=== PATIENT | male | born 1955 | race Caucasian/White ===

== ENCOUNTER 2017-06-09 12:44 | Outpatient (CLI) | payer MEDICARE ==
--- NOTE | 2017-06-09 13:51 | XRAY Report ---
TWO VIEW CHEST: 06/09/2017 CLINICAL INDICATION: COPD. COMPARISON: 09/09/2016. FINDINGS: Frontal and lateral views of the chest demonstrate a normal cardiac silhouette. The lungs remain hyperinflated, compatible with COPD. No new infiltrate, effusion, or pneumothorax is present. IMPRESSION: COPD, WITHOUT EVIDENCE OF ACUTE CARDIOPULMONARY DISEASE. JOB #: [id number] EXT JOB #:[id number]
== END 2017-06-09 12:45 | disposition home or self-care (01) ==
LOC: DI 12:44
PROVIDERS: ATTEND Nurse Practitioner Family
DX: J44.9 Chronic obstructive pulmonary disease, unspecified (principal)
CPT/HCPCS: 71020

== ENCOUNTER 2018-06-06 17:17 | Outpatient (CLI) | payer MEDICARE | END 2018-06-06 17:18 | disposition critical access hospital (66) | LOC: EMS 17:17 | PROVIDERS: ATTEND Surgery | DX: R06.02 Shortness of breath (principal) | CPT/HCPCS: A0425; A0427 ==

== ENCOUNTER 2018-06-06 17:50 | Emergency (ER) | payer MEDICARE ==
[2018-06-06] MEDS ORDERED: DEXTROSE 50% ABBOJECT 25 GM/50 ML SYRINGE ONE (18:04)
[2018-06-06] MEDS ORDERED: DEXTROSE 50% ABBOJECT 25 GM/50 ML SYRINGE IVP ONE (18:07)
[2018-06-06] MEDS ORDERED: DEXTROSE 50% ABBOJECT 25 GM/50 ML SYRINGE IVP STA (18:07)
[2018-06-06] MEDS ORDERED: HYDROCORTISONE SUCCINATE 100 MG/2 ML VIAL IVP STA (18:07)
[2018-06-06] MEDS ORDERED: SODIUM CHLORIDE 0.9% 1,000 ML IV ONE (18:08)
--- NOTE | 2018-06-06 18:12 | ED Physician Documentation ---
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 He admits he stopped a few days ago. I do not know what dose of prednisone he was on. He just felt like he did not need it anymore. Today he started to feel weak and then had a syncopal episode without injury. Blood sugar was low in route and was given D50. On arrival here it is still only 43 and he is mildly somnolent. He has no specific complaints other than feeling very tired.) Review of Systems Ten Systems: 10 systems reviewed and negative Constitutional: denies: Fever, Chills Cardiac: denies: Chest pain / pressure, Palpitations Respiratory: denies: Dyspnea, Cough GI: denies: Abdominal Pain PD PAST MEDICAL HISTORY - Past Medical History Cardiovascular: Hypertension Respiratory: Other Endocrine/Autoimmune: None GI: None : None HEENT: None Psych: None Musculoskeletal: None Derm: None - Past Surgical History Past Surgical History: Yes General: Colonoscopy, EGD - Present Medications Home Medications: Ambulatory Orders Medication Instructions Recorded Confirmed Amlodipine Besylate 10 mg PO DAILY 09/01/15 09/09/16 Budesonide [Pulmicort] 120 puffs INH ONCE PRN 09/01/15 09/09/16 Potassium Chloride [Micro-K] 10 meq PO BID 09/01/15 09/09/16 Cetirizine HCl [Zyrtec] 1 tab PO DAILY 09/02/15 09/09/16 Benzonatate [Tessalon] 100 mg PO TID PRN #20 capsule 11/18/15 09/09/16 Saccharomyces Boulardii [Florastor] 500 mg PO BID #40 capsule 11/18/15 09/09/16 Levetiracetam [Keppra] 500 mg PO BID 30 Days tablet 09/10/16 - Allergies Allergies/Adverse Reactions: Allergies Allergy/AdvReac Type Severity Reaction Status Date / Time No Known Drug Allergies Allergy Verified 06/06/18 18:09 - Social History Does the pt smoke?: No Smoking Status: Never smoker Does the pt drink ETOH?: Yes Does the pt have substance abuse?: No - Immunizations Immunizations are current?: Yes - POLST Patient has POLST: No PD ED PE NORMAL - Vitals Vital signs reviewed: Yes - General General: Alert and oriented X 3, Other (Slightly somnolent but easily arousable, pretty skinny.) - HEENT HEENT: PERRL, EOMI - Neck Neck: Supple, no meningeal sign, No bony TTP - Cardiac Cardiac: Other (Mild tachycardia without murmur) - Respiratory Respiratory: Other (Squeaky wheezes throughout which per the her chronic) - Abdomen Abdomen: Soft, Non tender - Extremities Extremities: No edema, No calf tenderness / cord - Neuro Neuro: Alert and oriented X 3, Normal speech Eye Opening: Spontaneous Motor: Obeys Commands Verbal: Oriented GCS Score: 15 - Psych Psych: Normal mood Results - Vitals Vitals: Vital Signs - 24 hr 06/06/18 18:05 Temperature 36.9 C Heart Rate 117 H Respiratory 16 Rate Blood Pressure 97/78 O2 Saturation 92 Oxygen O2 Source Room air - EKG (time done) 41626 Rate: Rate (enter#) (111) Rhythm: NSR [place]: RAD Intervals: Normal [place] QRS: Normal Ischemia: Normal ST segments Computer interpretation: Agree with computer - Labs Labs: Laboratory Tests 06/06/18 06/06/18 06/06/18 18:37 18:37 18:37 WBC 8.6 RBC 3.60 L Hgb 12.8 L Hct 37.6 L MCV 104.6 H MCH 35.7 H MCHC 34.1 RDW 14.0 Plt Count 202 MPV 7.3 L Neut # (Auto) 7.9 H Lymph # (Auto) 0.4 L [place] # (Auto) 0.3 Eos # (Auto) 0.0 Baso # (Auto) 0.0 Absolute Nucleated RBC 0.01 Nucleated RBC % 0.1 Sodium 137 Potassium 3.6 Chloride 100 L Carbon Dioxide 17 L Anion Gap 20.0 H BUN 7 Creatinine 0.9 Estimated GFR (MDRD) 86 L Glucose 245 H Calcium 7.5 L Total Bilirubin 0.4 AST 79 H ALT 27 Alkaline Phosphatase 68 Troponin I < 0.04 Total Protein 5.5 L Albumin 3.1 L Globulin 2.4 Albumin/Globulin Ratio 1.3 Lipase 52 H Ethyl Alcohol 284.5 PD MEDICAL DECISION MAKING - ED course ED course: 63-year-old gentleman who had a syncopal episode today, from the history and persistent hypoglycemia this is likely related to acute steroid withdrawal and he has given D50 on arrival which is followed closely by IV hydrocortisone. His workup shows pretty normal electrolytes and a surprisingly elevated alcohol level. So this probably explains a lot of his symptoms, the passing out and hypoglycemia as well. - Sepsis Event Vital Signs: Vital Signs - 24 hr 06/06/18 18:05 Temperature 36.9 C Heart Rate 117 H Respiratory 16 Rate Blood Pressure 97/78 O2 Saturation 92 Oxygen O2 Source Room air Departure - Departure Disposition: 01 Home, Self Care Clinical Impression: Dehydration Alcohol intoxication Qualifiers: Complication of substance-induced condition: uncomplicated Qualified Code(s): F10.920 - Alcohol use, unspecified with intoxication, uncomplicated Syncope Qualifiers: Syncope type: unspecified Qualified Code(s): R55 - Syncope and collapse Condition: Good Record reviewed to determine appropriate education?: Yes Instructions: ED Fainting Unkn Cause, ED Alcohol Intoxication Comments: Refrain from alcohol. Restart your steroids at the prior dose and do not stop them suddenly without input from your straightener. Return if worse or new symptoms develop.
[2018-06-06 18:47] LABS: BASOPHILS % (AUTO) 0.5 %; HGB - HEMOGLOBIN 12.8 g/dL (14.0-18.0); LYMPHOCYTES # (AUTO) 0.4 10^3/uL (1.5-3.5); LYMPHOCYTES % (AUTO) 4.8 %; MEAN CORPUSCULAR HEMOGLOBIN 35.7 pg (27.0-31.0); MEAN CORPUSCULAR HGB CONC 34.1 g/dL (32.0-36.0); MEAN CORPUSCULAR VOLUME 104.6 fL (80.0-94.0); MEAN PLATELET VOLUME 7.3 fL (7.4-11.4); MONOCYTES # (AUTO) 0.3 10^3/uL (0.0-1.0); MONOCYTES % (AUTO) 3.3 %; NEUTROPHILS # (AUTO) 7.9 10^3/uL (1.5-6.6); NEUTROPHILS % (AUTO) 91.4 %; PLT - PLATELET COUNT 202 10^3/uL (130-450); WHITE BLOOD COUNT 8.6 x10^3/uL (4.8-10.8)
[2018-06-06 19:02] LABS: ALBUMIN 3.1 g/dL (3.2-5.5); ALBUMIN/GLOBULIN RATIO 1.3 (1.0-2.2); BILIRUBIN,TOTAL 0.4 mg/dL (0.2-1.0); CALCIUM 7.5 mg/dL (8.5-10.3); CREATININE 0.9 mg/dL (0.6-1.2); TOTAL PROTEIN 5.5 g/dL (6.7-8.2)
[2018-06-06] MEDS ORDERED: ONDANSETRON 4 MG/2 ML VIAL IVP STA (19:34)
[2018-06-06] MEDS ORDERED: METOCLOPRAMIDE 10 MG/2 ML VIAL IVP STA (21:05)
[2018-06-06 21:41] VITALS: BP 146/86
== END 2018-06-06 21:53 | disposition home or self-care (01) ==
LOC: EDBD → EDUNIT# → ED 17:50
DX: E86.0 Dehydration (principal); F10.920 Alcohol use, unspecified with intoxication, uncomplicated; I10 Essential (primary) hypertension
CPT/HCPCS: 36415; 80053; 83690; 84484; 85025; 93005; 96361; 96374; 96375; 99283; 99284; J2765; 80320

== ENCOUNTER 2018-12-03 12:37 | Emergency (ER) | payer MEDICARE ==
[2018-12-03 13:22] LABS: BASOPHILS # (AUTO) 0.1 10^3/uL (0.0-0.1); BASOPHILS % (AUTO) 0.6 %; EOSINOPHILS % (AUTO) 0.3 %; HGB - HEMOGLOBIN 13.4 g/dL (14.0-18.0); LYMPHOCYTES # (AUTO) 0.7 10^3/uL (1.5-3.5); LYMPHOCYTES % (AUTO) 7.8 %; MEAN CORPUSCULAR HEMOGLOBIN 34.8 pg (27.0-31.0); MEAN CORPUSCULAR HGB CONC 33.5 g/dL (32.0-36.0); MEAN CORPUSCULAR VOLUME 103.6 fL (80.0-94.0); MEAN PLATELET VOLUME 8.8 fL (7.4-11.4); MONOCYTES # (AUTO) 0.4 10^3/uL (0.0-1.0); MONOCYTES % (AUTO) 5.1 %; NEUTROPHILS # (AUTO) 7.4 10^3/uL (1.5-6.6); NEUTROPHILS % (AUTO) 86.2 %; PLT - PLATELET COUNT 121 10^3/uL (130-450); RED BLOOD COUNT 3.86 10^6/uL (4.70-6.10); RED CELL DISTRIBUTION WIDTH 14.2 % (12.0-15.0); WHITE BLOOD COUNT 8.6 x10^3/uL (4.8-10.8)
[2018-12-03 13:43] LABS: ALBUMIN 3.5 g/dL (3.2-5.5); ALBUMIN/GLOBULIN RATIO 1.3 (1.0-2.2); BILIRUBIN,TOTAL 7.6 mg/dL (0.2-1.0); CALCIUM 9.1 mg/dL (8.5-10.3); CREATININE 0.9 mg/dL (0.6-1.2); TOTAL PROTEIN 6.3 g/dL (6.7-8.2)
--- NOTE | 2018-12-03 14:32 | ED Physician Documentation ---
PD HPI NVD - Stated complaint Stated Complaint: VOMITING/WEAKNESS - Chief complaint Chief Complaint: Abd Pain - History obtained from History obtained from: Patient, Family - History of Present Illness Timing - onset: Yesterday Timing - duration: Days (1) Timing - details: Abrupt onset, Still present Associated symptoms: Abdominal pain, Near syncope / syncope, Loss of appetite Contributing factors: Bad food Improved by: Vomiting, BM Similar symptoms before: Diagnosis (gastroenteritis) Recently seen: Not recently seen - Additonal information Additional information: 63-year-old alcoholic male with acute diarrheal illness of 2 days duration has developed dehydration. He has had this happen to him about every 3-4 months. He does have a history of drinking wine daily and he denies symptoms of withdrawal. He states that he usually withdrawal slowly when he withdrawals. He also indicates that he has been cutting down on what he usually drinks. Review of Systems Constitutional: denies: Fever Eyes: denies: Decreased vision Ears: denies: Ear pain Nose: reports: Congestion. denies: Rhinorrhea / runny nose Throat: denies: Sore throat Cardiac: denies: Chest pain / pressure, Palpitations Respiratory: reports: Dyspnea, Cough GI: reports: Nausea, Vomiting, Diarrhea. denies: Abdominal Pain : denies: Dysuria, Frequency Skin: denies: Rash Musculoskeletal: denies: Neck pain, Back pain, Extremity pain PD PAST MEDICAL HISTORY - Past Medical History Cardiovascular: Hypertension Respiratory: Other Endocrine/Autoimmune: None GI: None : None HEENT: None Psych: None Musculoskeletal: None Derm: None - Past Surgical History Past Surgical History: Yes General: Colonoscopy, EGD - Present Medications Home Medications: Ambulatory Orders Medication Instructions Recorded Confirmed Budesonide [Pulmicort] 120 puffs INH ONCE PRN 09/01/15 09/09/16 Potassium Chloride [Micro-K] 10 meq PO BID 09/01/15 09/09/16 RX: Amlodipine Besylate 10 mg PO DAILY 09/01/15 09/09/16 Cetirizine HCl [Zyrtec] 1 tab PO DAILY 09/02/15 09/09/16 Benzonatate [Tessalon] 100 mg PO TID PRN #20 capsule 11/18/15 09/09/16 Saccharomyces Boulardii [Florastor] 500 mg PO BID #40 capsule 11/18/15 09/09/16 Levetiracetam [Keppra] 500 mg PO BID 30 Days tablet 09/10/16 Ondansetron Odt [Zofran] 4 mg TL Q6H PRN #10 tablet 12/03/18 - Allergies Allergies/Adverse Reactions: Allergies Allergy/AdvReac Type Severity Reaction Status Date / Time No Known Drug Allergies Allergy Verified 12/03/18 12:46 - Social History Does the pt smoke?: No Smoking Status: Never smoker Does the pt drink ETOH?: Yes Does the pt have substance abuse?: No - Immunizations Immunizations are current?: Yes - POLST Patient has POLST: No PD ED PE NORMAL - Vitals Vital signs reviewed: Yes (tachy) - General General: Alert and oriented X 3, Well developed/nourished, Other (jaundiced thin male ) - HEENT HEENT: Atraumatic, PERRL, EOMI, Other (dry mucous membranes ) - Neck Neck: Supple, no meningeal sign, No bony TTP - Cardiac Cardiac: No murmur, Other (tachy to 110) - Abdomen Abdomen: Soft, Non tender - Back Back: No CVA TTP, No spinal TTP - Derm Derm: Normal color, Warm and dry, No rash - Extremities Extremities: No deformity, No edema - Neuro Neuro: Alert and oriented X 3, cork painter and grader 2-12 intact, No motor deficit, No sensory deficit, Normal speech Eye Opening: Spontaneous Motor: Obeys Commands Verbal: Oriented GCS Score: 15 - Psych Psych: Normal mood, Normal affect Results - Vitals Vitals: Vital Signs - 24 hr 12/03/18 12/03/18 12/03/18 12:44 14:48 16:09 Temperature 36.0 C L Heart Rate 136 H 116 H Respiratory 14 18 18 Rate Blood Pressure 113/69 144/98 H O2 Saturation 100 99 Oxygen O2 Source Room air - Labs Labs: Laboratory Tests 12/03/18 12/03/18 12/03/18 13:18 13:18 17:01 WBC 8.6 RBC 3.86 L Hgb 13.4 L Hct 40.0 L MCV 103.6 H MCH 34.8 H MCHC 33.5 RDW 14.2 Plt Count 121 L MPV 8.8 Neut # (Auto) 7.4 H Lymph # (Auto) 0.7 L [place] # (Auto) 0.4 Eos # (Auto) 0.0 Baso # (Auto) 0.1 Absolute Nucleated RBC 0.01 Nucleated RBC % 0.1 Sodium 132 L Potassium 3.5 Chloride 86 L Carbon Dioxide 29 Anion Gap 17.0 H BUN 11 Creatinine 0.9 Estimated GFR (MDRD) 86 L Glucose 171 H Calcium 9.1 Total Bilirubin 7.6 H AST 141 H ALT 130 H Alkaline Phosphatase 133 H Total Protein 6.3 L Albumin 3.5 Globulin 2.8 Albumin/Globulin Ratio 1.3 Lipase 60 H Urine Color YELLOW Urine Clarity CLEAR Urine pH 7.0 Ur Specific [place] 1.015 Urine Protein NEGATIVE Urine Glucose (UA) NEGATIVE Urine Ketones TRACE Urine Occult Blood NEGATIVE Urine Nitrite NEGATIVE Urine Bilirubin NEGATIVE Urine Urobilinogen 0.2 (NORMAL) Ur Leukocyte Esterase NEGATIVE Ur Microscopic Review NOT INDICATED Urine Culture Comments NOT INDICATED Procedures - IVC sono (time) 1425 Bedside IVC sono: IVC measures (cm) (0.88), IVC collapsed c insp (cm) (complete), Dehydration (est 2 liter deficit.) PD MEDICAL DECISION MAKING - ED course Complexity details: reviewed old records, reviewed results, re-evaluated patient, considered differential, d/w patient, d/w family ED course: 63-year-old alcoholic male has developed acute diarrhea and vomiting he is dehydrated and here in the emergency department he is administered 2 L of fluid he is given a liter of saline and 1 L as a banana bag. Evaluation of his laboratory work indicates acute alcoholic hepatitis. The patient is confronted about his alcohol use and indicates that he has been cutting down and will stop. I did discuss the patient's alcohol use with his as well and she will be in support. Departure - Departure Disposition: 01 Home, Self Care Clinical Impression: Dehydration, Gastroenteritis, Acute alcoholic hepatitis Condition: Stable Instructions: ED Cirrhosis Liver, ED Dehydration, ED Gastroenteritis Viral, ED Alcohol Abuse Follow-Up: Stalin Nazario MD [Primary Care Provider] - Prescriptions: Ondansetron Odt [Zofran] 4 mg TL Q6H PRN #10 tablet PRN Reason: Nausea / Vomiting Discharge Date/Time: 12/03/18 17:35
[2018-12-03] MEDS ORDERED: SODIUM CHLORIDE 0.9% 1,000 ML IV ONE (14:33)
[2018-12-03] MEDS ORDERED: HYDROCORTISONE SUCCINATE 100 MG/2 ML VIAL IVP STA (14:33)
[2018-12-03] MEDS ORDERED: FOLIC ACID INJ 1 MG, THIAMINE INJ 100 MG, MAGNESIUM SULFATE 2 GM, MULTIVITAMIN 10 ML in... IV STA ×5 (15:37)
[2018-12-03 16:10] VITALS: BP 144/98
[2018-12-03 17:13] LABS: BILIRUBIN,URINE NEGATIVE (NEGATIVE); GLUCOSE, URINE (UA) NEGATIVE (NEGATIVE); KETONES,URINE (UA) TRACE mg/dL (NEGATIVE); LEUKOCYTE ESTERASE, URINE NEGATIVE (NEGATIVE); NITRITE,URINE NEGATIVE (NEGATIVE); OCCULT BLOOD,URINE NEGATIVE (NEGATIVE); PROTEIN,URINE NEGATIVE (NEGATIVE); UROBILINOGEN,URINE 0.2 (NORMAL) E.U./dL (NORMAL)
[2018-12-03 17:17] LABS: CLARITY,URINE CLEAR (CLEAR)
== END 2018-12-03 17:35 | disposition home or self-care (01) ==
LOC: ED 12:37
DX: K52.9 Noninfective gastroenteritis and colitis, unspecified (principal); E86.0 Dehydration; K70.10 Alcoholic hepatitis without ascites; F10.20 Alcohol dependence, uncomplicated; I10 Essential (primary) hypertension
CPT/HCPCS: 36415; 80053; 81003; 83690; 85025; 96361; 96365; 96375; 99283; 99284; J3411; 81001; 87086

== ENCOUNTER 2018-12-04 17:58 | Outpatient (CLI) | payer MEDICARE | END 2018-12-04 17:59 | disposition short-term general hospital (02) | LOC: EMS 17:58 | PROVIDERS: ATTEND Surgery | DX: R56.9 Unspecified convulsions (principal); S01.552A Open bite of oral cavity, initial encounter; X58.XXXA Exposure to other specified factors, initial encounter | CPT/HCPCS: A0425; A0427 ==

== ENCOUNTER 2019-05-17 14:27 | Outpatient (CLI) | payer MEDICARE ==
--- NOTE | 2019-05-18 12:20 | Ultrasound Report ---
Reason: ABNORMAL RESULTS OF LIVER FUNCTION STUDIES Procedure Date: 05/17/2019 Accession Number: [id number] / [id number] Procedure: US - Abdomen Complete CPT Code: FULL RESULT: EXAM: ABDOMEN ULTRASOUND EXAM DATE: 05/17/2019 04:08 PM. CLINICAL HISTORY: Abnormal results of liver function studies. COMPARISON: ABDOMEN/PELVIS W/ 11/18/2015 12:46 PM. TECHNIQUE: Real-time scanning was performed with static images obtained. FINDINGS: Liver: Liver parenchyma is heterogeneous and mildly hyperechoic. No discrete liver masses or intrahepatic bile duct dilation. However, evaluation for masses is limited secondary to the echogenicity. Right liver measures 15.1 cm. Main portal vein flow: Hepatopetal. Gallbladder: Normal. No stones, wall thickening, or sonographic Henderson's sign. Biliary System: Common bile duct measures 3 mm. No intrahepatic or extrahepatic ductal dilatation. Pancreas: Limited visualization of the grossly unremarkable pancreas. Given the limitations, no focal abnormality. Kidneys: Right: 10.1 cm longitudinally. Normal. No contour-deforming mass, stones, or hydronephrosis. Left: 9.7 cm longitudinally. 0.6 cm mid left renal echogenic shadowing focus compatible with a stone. No left renal mass or hydronephrosis. Spleen: Length measures 7.5 cm. Normal in size and echotexture. Not well seen. Aorta and Inferior Vena Cava: Atheromatous plaques noted. No abdominal aortic aneurysm. Normal IVC. Other: None. IMPRESSION: 1. Heterogeneous liver. Findings are compatible with diffuse parenchymal process. No mass or intrahepatic bile duct dilation. No definite cirrhosis. 2. Normal gallbladder and common bile duct. Limited visualization of the grossly unremarkable pancreas. 3. No renal mass or hydronephrosis. Nonobstructing 0.6 cm mid left renal stone. RADIA
== END 2019-05-17 14:28 | disposition home or self-care (01) ==
LOC: DI 14:27
PROVIDERS: ATTEND Nurse Practitioner Family
DX: R94.5 Abnormal results of liver function studies (principal)
CPT/HCPCS: 76700

== ENCOUNTER 2019-11-04 14:46 | Emergency (ER) | payer MEDICARE ==
--- NOTE | 2019-11-04 14:58 | ED Physician Documentation ---
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 He presents with about 2 days of hard stools and rectal pain and rectal bleeding since yesterday. Does feel weak and dizzy. No abdominal pain.) Review of Systems Ten Systems: 10 systems reviewed and negative Constitutional: reports: Fatigue. denies: Fever, Chills Respiratory: denies: Dyspnea (Today is "a good day" for his lungs), Cough GI: reports: Constipation, Bloody / black stool. denies: Abdominal Pain, Nausea, Vomiting PD PAST MEDICAL HISTORY - Past Medical History Cardiovascular: Hypertension Respiratory: Other Endocrine/Autoimmune: None GI: None : None HEENT: None Psych: None Musculoskeletal: None Derm: None - Past Surgical History Past Surgical History: Yes General: Colonoscopy, EGD - Present Medications Home Medications: Ambulatory Orders Medication Instructions Recorded Confirmed Amlodipine Besylate 10 mg PO DAILY 09/01/15 09/09/16 Budesonide [Pulmicort] 120 puffs INH ONCE PRN 09/01/15 09/09/16 Potassium Chloride [Micro-K] 10 meq PO BID 09/01/15 09/09/16 Cetirizine HCl [Zyrtec] 1 tab PO DAILY 09/02/15 09/09/16 Benzonatate [Tessalon] 100 mg PO TID PRN #20 capsule 11/18/15 09/09/16 Saccharomyces Boulardii [Florastor] 500 mg PO BID #40 capsule 11/18/15 09/09/16 Levetiracetam [Keppra] 500 mg PO BID 30 Days tablet 09/10/16 Ondansetron Odt [Zofran] 4 mg TL Q6H PRN #10 tablet 12/03/18 Lidocaine [Recticare] 1 appful TP TID #2 cream..g. 11/04/19 - Allergies Allergies/Adverse Reactions: Allergies Allergy/AdvReac Type Severity Reaction Status Date / Time No Known Drug Allergies Allergy Verified 11/04/19 15:01 - Social History Does the pt smoke?: No Smoking Status: Never smoker Does the pt drink ETOH?: Yes Does the pt have substance abuse?: No - Immunizations Immunizations are current?: Yes - POLST Patient has POLST: No PD ED PE NORMAL - Vitals Vital signs reviewed: Yes (Tachycardic) - General General: Alert and oriented X 3, Other (He is quite thin) - HEENT HEENT: PERRL, EOMI - Neck Neck: Supple, no meningeal sign, No bony TTP - Cardiac Cardiac: Other (Cardiac but regular without murmur) - Respiratory Respiratory: Other (Mild wheezes and crackles throughout without focal findings or distress) - Abdomen Abdomen: Soft, Non tender - Rectal Rectal: Other (Does have a rectal fissure that is tender, a small amount of bright red blood per rectum. No masses.) - Back Back: No CVA TTP, No spinal TTP - Derm Derm: Normal color, Warm and dry, No rash - Extremities Extremities: No edema, No calf tenderness / cord - Neuro Neuro: Alert and oriented X 3, Normal speech Results - Vitals Vitals: Vital Signs - 24 hr 11/04/19 11/04/19 14:53 15:28 Temperature 36.0 C L Heart Rate 131 H 87 Respiratory 22 Rate Blood Pressure 125/100 H O2 Saturation 98 Oxygen O2 Source Room air - EKG (time done) 1512 Rate: Rate (enter#) (93) Rhythm: NSR, LAE, JOSE MARIA [place]: RAD Intervals: Normal ID QRS: Normal Ischemia: Non specific changes. No: ST elevation c/w ischemia, ST depression - Labs Labs: Laboratory Tests 11/04/19 11/04/19 11/04/19 15:05 15:05 15:05 WBC 9.1 RBC 4.24 L Hgb 14.2 Hct 40.8 L MCV 96.2 H MCH 33.5 H MCHC 34.8 RDW 14.5 Plt Count 193 MPV 9.3 Neut # (Auto) 7.7 H Lymph # (Auto) 0.7 L [place] # (Auto) 0.6 Eos # (Auto) 0.0 Baso # (Auto) 0.0 Absolute Nucleated RBC 0.00 Nucleated RBC % 0.0 PT 11.3 INR 1.0 Sodium 134 L Potassium 3.7 Chloride 87 L Carbon Dioxide 26 Anion Gap 21.0 H BUN 14 Creatinine 0.8 Estimated GFR (MDRD) 98 Glucose 107 H Calcium 9.2 Total Bilirubin 2.6 H AST 128 H ALT 111 H Alkaline Phosphatase 72 Total Protein 7.1 Albumin 4.2 Globulin 2.9 Albumin/Globulin Ratio 1.4 Lipase 69 H Ethyl Alcohol 149.8 PD MEDICAL DECISION MAKING - ED course ED course: 64-year-old gentleman with alcoholism and alcoholic liver disease presents with a rectal bleed found due to a rectal fissure. His H&H is reassuring, his coags are normal and his platelets are normal. He does have some evidence of alcohol intoxication and alcoholic liver disease. He did not drive today, his did. He declined to talk to the social media job titles about alcohol but does voice understanding and plans to quit drinking. Departure - Departure Disposition: Home, Self Care Clinical Impression: Rectal fissure, Hematochezia, Alcoholic liver disease Alcohol intoxication Qualifiers: Complication of substance-induced condition: uncomplicated Qualified Code(s): F10.920 - Alcohol use, unspecified with intoxication, uncomplicated Condition: Good Record reviewed to determine appropriate education?: Yes Instructions: ED Alcohol Intoxication, ED Fissure Anal Ch Prescriptions: Lidocaine [Recticare] 1 appful TP TID #2 cream..g. Comments: As discussed, it is imperative to quit drinking alcohol. Your liver is suffering as is your health. Return for new or worsening symptoms. Follow-up with your doctor within the week.
[2019-11-04 15:01] VITALS: BP 125/100
[2019-11-04] MEDS ORDERED: SODIUM CHLORIDE 0.9% 1,000 ML IV ONE (15:10)
[2019-11-04 15:13] LABS: BASOPHILS % (AUTO) 0.1 %; HGB - HEMOGLOBIN 14.2 g/dL (14.0-18.0); LYMPHOCYTES # (AUTO) 0.7 10^3/uL (1.5-3.5); LYMPHOCYTES % (AUTO) 7.8 %; MEAN CORPUSCULAR HEMOGLOBIN 33.5 pg (27.0-31.0); MEAN CORPUSCULAR HGB CONC 34.8 g/dL (32.0-36.0); MEAN CORPUSCULAR VOLUME 96.2 fL (80.0-94.0); MEAN PLATELET VOLUME 9.3 fL (7.4-11.4); MONOCYTES # (AUTO) 0.6 10^3/uL (0.0-1.0); NEUTROPHILS # (AUTO) 7.7 10^3/uL (1.5-6.6); NEUTROPHILS % (AUTO) 84.7 %; PLT - PLATELET COUNT 193 10^3/uL (130-450); RED BLOOD COUNT 4.24 10^6/uL (4.70-6.10); RED CELL DISTRIBUTION WIDTH 14.5 % (12.0-15.0); WHITE BLOOD COUNT 9.1 x10^3/uL (4.8-10.8)
[2019-11-04 15:17] LABS: PT - PROTHROMBIN TIME 11.3 secs (9.9-12.6)
[2019-11-04 15:25] LABS: ALBUMIN 4.2 g/dL (3.2-5.5); ALBUMIN/GLOBULIN RATIO 1.4 (1.0-2.2); BILIRUBIN,TOTAL 2.6 mg/dL (0.2-1.0); CALCIUM 9.2 mg/dL (8.5-10.3); CREATININE 0.8 mg/dL (0.6-1.2); TOTAL PROTEIN 7.1 g/dL (6.7-8.2)
== END 2019-11-04 15:50 | disposition home or self-care (01) ==
LOC: ED 14:46
DX: K60.2 Anal fissure, unspecified (principal); K92.1 Melena; F10.229 Alcohol dependence with intoxication, unspecified; K70.0 Alcoholic fatty liver; I10 Essential (primary) hypertension
CPT/HCPCS: 36415; 80053; 80320; 83690; 85025; 85610; 86850; 86900; 86901; 93005; 99284

== ENCOUNTER 2021-02-15 | Outpatient (CLI) | payer MEDICARE | END 2021-02-15 17:11 | disposition critical access hospital (66) | CPT/HCPCS: A0425; A0427 ==

== ENCOUNTER 2021-02-15 17:40 | Observation (INO) | payer MEDICARE ==
[2021-02-15] MEDS ORDERED: SODIUM CHLORIDE 0.9% 1,000 ML IV STA (17:49)
[2021-02-15] MEDS ORDERED: THIAMINE INJ 100 MG in SODIUM CHLORIDE 0.9% 50 ML IV STA (17:49)
--- NOTE | 2021-02-15 17:49 | ED Physician Documentation ---
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 Has not seen his automatic blocker [facility] in many years. He was in his usual state of health this morning when out to breakfast with which he had a couple of screwdrivers and then had a trip and fall getting in the car on the curve directly onto the left hip. He has severe pain left hip, although declines further pain medication on initial evaluation after a total of 150 mcg of fentanyl on the way here. He states his breathing is not any worse than normal. Denies head or neck injury. He is unable to walk or bear weight. Review of Systems Ten Systems: 10 systems reviewed and negative Constitutional: reports: Reviewed and negative Ears: reports: Reviewed and negative Nose: reports: Reviewed and negative Throat: reports: Reviewed and negative PD PAST MEDICAL HISTORY - Past Medical History Cardiovascular: Hypertension Respiratory: Other Endocrine/Autoimmune: None GI: None : None HEENT: None Psych: None Musculoskeletal: None Derm: None - Past Surgical History Past Surgical History: Yes General: Colonoscopy, EGD - Present Medications Home Medications: Ambulatory Orders Medication Instructions Recorded Confirmed Amlodipine Besylate 10 mg PO DAILY 09/01/15 09/09/16 Budesonide [Pulmicort] 120 puffs INH ONCE PRN 09/01/15 09/09/16 Potassium Chloride [Micro-K] 10 meq PO BID 09/01/15 09/09/16 Cetirizine HCl [Zyrtec] 1 tab PO DAILY 09/02/15 09/09/16 Benzonatate [Tessalon] 100 mg PO TID PRN #20 capsule 11/18/15 09/09/16 Saccharomyces Boulardii [Florastor] 500 mg PO BID #40 capsule 11/18/15 09/09/16 Levetiracetam [Keppra] 500 mg PO BID 30 Days tablet 09/10/16 Ondansetron Odt [Zofran] 4 mg TL Q6H PRN #10 tablet 12/03/18 Lidocaine [Recticare] 1 appful TP TID #2 cream..g. 11/04/19 - Allergies Allergies/Adverse Reactions: Allergies Allergy/AdvReac Type Severity Reaction Status Date / Time No Known Drug Allergies Allergy Verified 02/15/21 18:04 - Social History Does the pt smoke?: No Smoking Status: Never smoker Does the pt drink ETOH?: Yes Does the pt have substance abuse?: No - Immunizations Immunizations are current?: Yes - POLST Patient has POLST: No PD ED PE NORMAL - Vitals Vital signs reviewed: Yes (Hypoxemic) - General General: Alert and oriented X 3, Other (He is quite thin, does not appear acutely ill though but winces with pain with any motion of the left hip.) - HEENT HEENT: PERRL, EOMI - Neck Neck: Supple, no meningeal sign, No bony TTP - Cardiac Cardiac: RRR, No murmur - Respiratory Respiratory: No respiratory distress, Other (Diminished breath sounds throu ghout) - Abdomen Abdomen: Soft, Non tender - Back Back: No CVA TTP, No spinal TTP - Derm Derm: Normal color, Warm and dry - Extremities Extremities: Other (Left hip is held flexed and slightly shortened with profound pain with any motion.) - Neuro Neuro: Alert and oriented X 3, Normal speech Results - Vitals Vitals: Vital Signs - 24 hr 02/15/21 02/15/21 17:44 18:12 Temperature 36.8 C Heart Rate 116 H 114 H Respiratory 18 22 Rate Blood Pressure 132/95 H 127/86 H O2 Saturation 85 L 97 Oxygen O2 Source Nasal cannula Oxygen Flow Rate 2 - EKG (time done) 1757 Rate: Rate (enter#) (115) Rhythm: Sinus tachycardia, JOSE MARIA [place]: RAD Intervals: Normal [place] QRS: Normal Ischemia: Normal ST segments - Labs Labs: Laboratory Tests 02/15/21 02/15/21 02/15/21 18:21 18:21 18:21 WBC 9.6 RBC 3.68 L Hgb 12.1 L Hct 36.8 L MCV 100.0 H MCH 32.9 H MCHC 32.9 RDW 14.9 Plt Count 204 MPV 8.5 Neut # (Auto) 7.6 H Lymph # (Auto) 1.0 L Rooks # (Auto) 1.0 Eos # (Auto) 0.0 Baso # (Auto) 0.0 Absolute Nucleated RBC 0.00 Nucleated RBC % 0.0 PT 11.8 INR 1.1 Sodium 134 L Potassium 3.3 L Chloride 93 L Carbon Dioxide 31 Anion Gap 10.0 BUN 10 Creatinine 0.7 Estimated GFR (MDRD) 114 Glucose 102 H Calcium 8.1 L Magnesium 1.6 L Total Bilirubin 0.5 AST 57 H ALT 41 Alkaline Phosphatase 49 Total Protein 6.3 L Albumin 3.7 Globulin 2.6 Albumin/Globulin Ratio 1.4 Nasal Adenovirus (PCR) Nasal B. parapertussis DNA (PCR) Nasal Coronavir 229E PCR Nasal Coronavir HKU1 PCR Nasal Coronavir NL63 PCR Nasal Coronavir OC43 PCR Nasal Enterovir/Rhinovir PCR Nasal Influenza B PCR Nasal Influenza A PCR Nasal Parainfluen 1 PCR Nasal Parainfluen 2 PCR Nasal Parainfluen 3 PCR Nasal Parainfluen 4 PCR Nasal RSV (PCR) Nasal B.pertussis DNA PCR Nasal C.pneumoniae (PCR) Fan Human Metapneumo PCR Nasal M.pneumoniae (PCR) Nasal SARS-CoV-2 (PCR) Ethyl Alcohol 154.3 02/15/21 18:39 WBC RBC Hgb Hct MCV MCH MCHC RDW Plt Count MPV Neut # (Auto) Lymph # (Auto) Rooks # (Auto) Eos # (Auto) Baso # (Auto) Absolute Nucleated RBC Nucleated RBC % PT INR Sodium Potassium Chloride Carbon Dioxide Anion Gap BUN Creatinine Estimated GFR (MDRD) Glucose Calcium Magnesium Total Bilirubin AST ALT Alkaline Phosphatase Total Protein Albumin Globulin Albumin/Globulin Ratio Nasal Adenovirus (PCR) NOT DETECTED Nasal B. parapertussis DNA (PCR) NOT DETECTED Nasal Coronavir 229E PCR NOT DETECTED Nasal Coronavir HKU1 PCR NOT DETECTED Nasal Coronavir NL63 PCR NOT DETECTED Nasal Coronavir OC43 PCR NOT DETECTED Nasal Enterovir/Rhinovir PCR NOT DETECTED Nasal Influenza B PCR NOT DETECTED Nasal Influenza A PCR NOT DETECTED Nasal Parainfluen 1 PCR NOT DETECTED Nasal Parainfluen 2 PCR NOT DETECTED Nasal Parainfluen 3 PCR NOT DETECTED Nasal Parainfluen 4 PCR NOT DETECTED Nasal RSV (PCR) NOT DETECTED Nasal B.pertussis DNA PCR NOT DETECTED Nasal C.pneumoniae (PCR) NOT DETECTED Fan Human Metapneumo PCR NOT DETECTED Nasal M.pneumoniae (PCR) NOT DETECTED Nasal SARS-CoV-2 (PCR) NOT DETECTED Ethyl Alcohol PD MEDICAL DECISION MAKING - ED course ED course: 65-year-old gentleman with constrictive bronchiolitis and alcoholism presents after a fall directly onto the left hip. Initial x-ray was negative and this was followed by a CT showing a nondisplaced comminuted fracture of the anterior column of the left acetabulum into the roof of less abscess acetabulum. This was discussed by phone with our on-call orthopedist, Dr. Antonio who felt this was a nonoperative issue and TT weightbearing with a walker with advised. That said he was noted to have an oxygen requirement he arrived., He has no acute pulmonary complaints and my suspicion is he probably is hypoxic all day, every day.Patient was unable to pass a road test and was still hypoxemic and required the supplemental oxygen. As such he was presented to Dr. Lucero for observation at 8:12 PM. Departure - Departure Disposition: ED Place in Observation Clinical Impression: Hypoxemia, Bronchiolitis Left acetabular fracture Qualifiers: Encounter type: initial encounter Sublocation of acetabulum: unspecified portion of acetabulum Fracture type: closed Fracture alignment: nondisplaced Qualified Code(s): S32.402A - Unspecified fracture of left acetabulum, initial encounter for closed fracture Alcohol intoxication Qualifiers: Complication of substance-induced condition: uncomplicated Qualified Code(s): F10.920 - Alcohol use, unspecified with intoxication, uncomplicated Condition: Serious
[2021-02-15] MEDS ORDERED: THIAMINE 100 MG/1 ML 2 ML MDV ONE (18:22)
--- NOTE | 2021-02-15 18:22 | XRAY Report ---
PROCEDURE: Chest 1 View X-Ray INDICATIONS: hypoxemia TECHNIQUE: One view of the chest was acquired. COMPARISON: 06/09/2017 FINDINGS: Surgical changes and devices: None. Lungs and pleura: No pleural effusions or pneumothorax. Lungs are clear. Mediastinum: Mediastinal contours appear normal. Heart size is normal. Bones and chest wall: No suspicious bony lesions. Overlying soft tissues appear unremarkable. IMPRESSION: No evidence acute pulmonary process. Reviewed by: Gordon Mims MD on 02/15/2021 6:21 PM PDT Approved by: Gordon Mims MD on 02/15/2021 6:21 PM PDT Station ID: [id number]
[2021-02-15 18:25] LABS: BASOPHILS % (AUTO) 0.2 %; EOSINOPHILS % (AUTO) 0.1 %; HCT - HEMATOCRIT 36.8 % (42.0-52.0); HGB - HEMOGLOBIN 12.1 g/dL (14.0-18.0); LYMPHOCYTES % (AUTO) 9.9 %; MEAN CORPUSCULAR HEMOGLOBIN 32.9 pg (27.0-31.0); MEAN CORPUSCULAR HGB CONC 32.9 g/dL (32.0-36.0); MEAN PLATELET VOLUME 8.5 fL (7.4-11.4); MONOCYTES % (AUTO) 10.4 %; NEUTROPHILS # (AUTO) 7.6 10^3/uL (1.5-6.6); NEUTROPHILS % (AUTO) 78.9 %; PLT - PLATELET COUNT 204 10^3/uL (130-450); RED BLOOD COUNT 3.68 10^6/uL (4.70-6.10); RED CELL DISTRIBUTION WIDTH 14.9 % (12.0-15.0); WHITE BLOOD COUNT 9.6 x10^3/uL (4.8-10.8)
[2021-02-15] MEDS ORDERED: HYDROmorphone 1 MG/ML CARPUJECT IVP STA ×2 (18:25→19:48)
--- NOTE | 2021-02-15 18:25 | XRAY Report ---
PROCEDURE: Hip w/Pelvis 2-3V LT INDICATIONS: L hip injury TECHNIQUE: AP pelvis with lateral view(s) of the left mild left hip degenerative change. hip(s). COMPARISON: None. FINDINGS: Bones: No fractures or dislocations. Pelvic ring appears intact. No suspicious bony lesions. Soft tissues: The visualized bowel gas pattern is normal. No suspicious soft tissue calcifications. Extensive internal iliac calcification suggests possible diabetes. IMPRESSION: Mild left hip degenerative change. No evidence acute bony abnormality of the pelvis and left hip. Reviewed by: Gordon Mims MD on 02/15/2021 6:23 PM PDT Approved by: Gordon Mims MD on 02/15/2021 6:23 PM PDT Station ID: [id number]
[2021-02-15 18:30] LABS: INR 1.1 (0.8-1.2); PT - PROTHROMBIN TIME 11.8 secs (9.9-12.6)
[2021-02-15 18:38] LABS: ALBUMIN 3.7 g/dL (3.2-5.5); ALBUMIN/GLOBULIN RATIO 1.4 (1.0-2.2); BILIRUBIN,TOTAL 0.5 mg/dL (0.2-1.0); CALCIUM 8.1 mg/dL (8.5-10.3); CREATININE 0.7 mg/dL (0.6-1.2); ETOH - ETHANOL 154.3 mg/dL; MAGNESIUM 1.6 mg/dL (1.7-2.8); POTASSIUM 3.3 mmol/L (3.5-5.0); TOTAL PROTEIN 6.3 g/dL (6.7-8.2)
[2021-02-15 19:37] LABS: B. PARAPERTUSSIS- RESP PCR PAN NOT DETECTED; B. PERTUSSIS- RESP PCR PANEL NOT DETECTED; C. PNEUMONIAE- RESP PCR PANEL NOT DETECTED; CORONAVIRUS 229E-RESP PCR NOT DETECTED; CORONAVIRUS HKU1-RESP PCR NOT DETECTED; CORONAVIRUS NL63-RESP PCR NOT DETECTED; CORONAVIRUS OC43-RESP PCR NOT DETECTED; HUMAN METAPNEUMOVIRUS NOT DETECTED; INFLUENZA A- RESP PCR PANEL NOT DETECTED; INFLUENZA B - RESP PCR PANEL NOT DETECTED; M. PNEUMONIAE- RESP PCR PANEL NOT DETECTED; PARAINFLUENZA VIRUS 1 NOT DETECTED; PARAINFLUENZA VIRUS 2 NOT DETECTED; PARAINFLUENZA VIRUS 3 NOT DETECTED; PARAINFLUENZA VIRUS 4 NOT DETECTED; RHINOVIRUS/ENTEROVIRUS NOT DETECTED; RSV- RESP PCR PANEL NOT DETECTED; SARS-CoV-2 -RESP PCR PANEL NOT DETECTED
--- NOTE | 2021-02-15 19:40 | CT Report ---
PROCEDURE: LOWER EXTREMITY WO - LT INDICATIONS: Hip injury TECHNIQUE: Noncontrast 3 mm axial sections acquired of the pelvis and left hip, with coronal and sagittal reform ats. COMPARISON: None. FINDINGS: Image quality: Excellent. Bones: There is a comminuted fracture of the anterior column of the left acetabulum. There is a nond isplaced fracture extending into the roof of the acetabulum as well. No fractures of the femoral head and neck and trochanteric region. No other pelvic fractures noted. Soft tissues: Unremarkable IMPRESSION: 1. Nondisplaced comminuted fracture of the anterior column of the left acetabulum with fracture exten ding into the roof of the left acetabulum. Reviewed by: Gordon Mims MD on 02/15/2021 7:39 PM PDT Approved by: Gordon Mims MD on 02/15/2021 7:39 PM PDT Station ID: [id number]
[2021-02-15] MEDS ORDERED: KETOROLAC 30 MG/ML VIAL IVP STA (19:48)
[2021-02-15] MEDS ORDERED: ONDANSETRON 4 MG/2 ML VIAL IVP PRN (20:14)
[2021-02-15] MEDS ORDERED: SODIUM CHLORIDE FLUSH 0.9% 10 ML SYRINGE IVP PRN (20:14)
[2021-02-15] MEDS ORDERED: ACETAMINOPHEN 325 MG TABLET PO PRN (20:14)
--- NOTE | 2021-02-15 20:21 | HISTORY & PHYSICAL EXAMINATION ---
Chief Complaint - Chief Complaint Chief Complaint: s/p mechanical fall History of Present Illness - Admitted From Admitted From:: [facility] ED - History Obtained From Records Reviewed: yes History obtained from: patient - History of Present Illness HPI Comment/Other: Patient is a 65-year-old male with medical history significant for Alcohol ab use, hypertension, GERD, previous history of seizures and constrictive bronchiolitis for which he is on chronic prednisone as needed. He has not seen his travel registered nurse pacu in a very long time. He presented to the ED today with left hip pain and being unable to stand or walk. He went out for breakfast today and on his way back to his truck he tripped on the curb and fell on his left side. He did not hit his head or pass out. He was unable to stand on his own and required some help from his to get into the truck. His drove them back home. A couple of hours later he tried to stand and was unable to bear weight on his left leg. As a result EMS was called and he was brought to the ED for evaluation. Work-up in the ED included a CT of the left lower extremity which showed a non-displaced comminuted fracture of the anterior column of the left acetabulum, with the fracture extending into the roof of the left acetabulum. This was discussed with Dr. Jeffrey Antonio. It was deemed to be inoperable. Also in the ED he was noted to have an oxygen saturation of 85% on room air. The patient denied feeling dyspneic. His blood alcohol at time of admission was 154.3 As a result of his hypoxia, left hip pain and being unable to bear weight he was admitted for supplemental oxygen and further pain management. At bedside he denies any pain as long as he is not moving. He denies chest pain, dyspnea, abdominal pain, nausea, vomiting, fever or chills. History - Past Medical History Cardiovascular: reports: Hypertension Respiratory: reports: Other (Constrictive bronchiolitis) Endocrine/Autoimmune: reports: None GI: reports: None : reports: None HEENT: reports: None Psych: reports: None Musculoskeletal: reports: None Derm: reports: None MRSA Hx?: No Other Past Medical History: Alcohol abuse - Past Surgical History General: reports: Colonoscopy, EGD Other past surgical history: Patient denies any past surgical history - Family & Social History Family History Comment/Other: His brother had liver failure. Etiology unknown. He underwent a liver transplant. Social History Notes: He lives at home with his . He is normally independen t of activities of daily living. He denies tobacco use. He reports drinking 2 beers daily and 2 glasses of wine in the evening. He also uses some form of marijuana - POLST Patient has POLST: No POLST Status: Full Code Meds/Allgy - Home Medications Home Medications: Ambulatory Orders Medication Instructions Recorded Confirmed Amlodipine Besylate 10 mg PO DAILY 09/01/15 09/09/16 Budesonide [Pulmicort] 120 puffs INH ONCE PRN 09/01/15 09/09/16 Potassium Chloride [Micro-K] 10 meq PO BID 09/01/15 09/09/16 Cetirizine HCl [Zyrtec] 1 tab PO DAILY 09/02/15 09/09/16 Benzonatate [Tessalon] 100 mg PO TID PRN #20 capsule 11/18/15 09/09/16 Saccharomyces Boulardii [Florastor] 500 mg PO BID #40 capsule 11/18/15 09/09/16 Levetiracetam [Keppra] 500 mg PO BID 30 Days tablet 09/10/16 Ondansetron Odt [Zofran] 4 mg TL Q6H PRN #10 tablet 12/03/18 Lidocaine [Recticare] 1 appful TP TID #2 cream..g. 11/04/19 - Allergies Allergies/Adverse Reactions: Allergies Allergy/AdvReac Type Severity Reaction Status Date / Time No Known Drug Allergies Allergy Verified 02/15/21 18:04 Review of Systems - Constitutional Constitutional: reports: Other (Frail). denies: Fatigue, Fever, Chills - Eyes Eyes: denies: Pain, Vision loss - Ears, Nose & Throat Ears, Nose & Throat: denies: Sore throat - Cardiovascular Cariovascular: denies: Chest pain, Edema, Lightheadedness, Syncope - Respiratory Respiratory: denies: Cough, Sputum production, Wheezing, SOB at rest, SOB with exertion - Gastrointestinal Gastrointestinal: denies: Abdominal pain, Abdominal distention, Nausea, Vomiting - Genitourinary Genitourinary: denies: Dysuria, Frequency, Hematuria - Musculoskeletal Musculoskeletal: reports: Joint pain (left hip joint) - Integumentary Integumentary: denies: Rash, Pruritis, Lesions - Neurological Neurological: denies: General weakness, Focal weakness, Headache - Psychiatric Psychiatric: denies: Depression, Anxiety - Endocrine Endocrine: denies: Polyuria, Polydypsia - Hematologic/Lymphatic Hematologic/Lymphatic: denies: Anemia, Bruising, Petechiae Prior Level of Functionality: Patient is normally independent of activities of daily living Exam - Vital Signs Vital Signs: Vital Signs x48h Temp Pulse Resp BP Pulse Ox 02/15/21 18:12 114 H 22 127/86 H 97 02/15/21 17:44 36.8 C 116 H 18 132/95 H 85 L - Physical Exam General Appearance: positive: Alert, Mild distress, Moderate distress, Other (Frail/malnourished) Eyes Bilateral: positive: PERRL, EOMI ENT: positive: No signs of dehydration Neck: positive: No JVD, Trachea midline Respiratory: positive: Chest non-tender, No respiratory distress. negative: Wheezes, Rales, Rhonchi Cardiovascular: positive: No murmur, Tachycardia Abdomen: positive: Non-tender, No organomegaly, Nml bowel sounds, No distention. negative: Guarding, Rebound Back: positive: Nml inspection Skin: positive: Color nml, No rash, Warm, Dry Extremities: positive: Nml appearance, No pedal edema Neurologic/Psychiatric: positive: Oriented x3, CN's nml (2-12), Mood/affect nml Conclusion/Plan - Problem List (1) Left acetabular fracture Conclusion/Plan: Dr. Jeffrey Antonio with orthopedic surgery was contacted by Dr. Mccullough in the ED. The fracture is deemed to be in operable. However the patient is unable to bear weight/ambulate. Pain management as needed. PT/OT to evaluate the patient and give recommendations. The patient might possibly need temporary placement. Qualifiers: Encounter type: initial encounter Sublocation of acetabulum: unspecified portion of acetabulum Fracture type: closed Fracture alignment: nondisplaced Qualified Code(s): S32.402A - Unspecified fracture of left acetabulum, initial encounter for closed fracture (2) Hypoxemia Conclusion/Plan: Patient has history of constrictive bronchiolitis at baseline. Oxygen saturation was 85% on room air. Patient required 2 L of supplemental oxygen via nasal cannula to maintain his oxygen in the 90s. We will continue budesonide. DuoNeb as needed. The patient has not seen his travel registered nurse pacu at the [facility] in several years. He is on chronic prednisone as needed which he last took today. He has been advised of the effects of long-term steroid use to his bones, blood glucose level and mood. He expresses understanding. (3) Bronchiolitis Conclusion/Plan: Chronic. DuoNeb ordered as needed. Continue budesonide. Patient is on supplemental oxygen. The patient has not seen his travel registered nurse pacu at the [facility] in se veral years. He is on chronic prednisone as needed which he last took today. He has been advised of the effects of long-term steroid use to his bones, blood glucose level and mood. He expresses understanding. (4) Alcohol intoxication Conclusion/Plan: Blood alcohol level was 154 at admission. Will order CIWA protocol. Qualifiers: Complication of substance-induced condition: uncomplicated Qualified Code(s): F10.920 - Alcohol use, unspecified with intoxication, uncomplicated (5) Hypertension Conclusion/Plan: On amlodipine 10 mg p.o. daily. (6) History of seizures Conclusion/Plan: Patient reports that he no longer takes Keppra. - Lab Results Fish Bones: 02/15/21 18:21 02/15/21 18:21 Core Measures - Anticipated LOS I expect patient to be DC'd or transferred within 96 hours.: Yes - DVT/VTE - Prophylaxis VTE/DVT Device ordered at admit?: Yes VTE/DVT Prophylaxis med ordered at admit?: Yes
[2021-02-15] MEDS ORDERED: levETIRAcetam 250 MG TABLET PO SCH (21:00)
[2021-02-15] MEDS: FAMOTIDINE 20 MG TABLET PO SCH (22:28)
[2021-02-15] MEDS: chlordiazePOXIDE 25 MG CAPSULE PO SCH (22:28)
[2021-02-16] MEDS: HYDROmorphone 0.5 MG/0.5 ML SYRINGE IVP PRN ×3 (00:20→12:59)
[2021-02-16] MEDS: KETOROLAC 30 MG/ML VIAL IVP PRN ×2 (00:44→08:38)
[2021-02-16] MEDS ORDERED: KETOROLAC 30 MG/ML VIAL IVP PRN (02:00)
[2021-02-16] MEDS: HYDROcod/ACETAM 5/325 MG TABLET PO PRN ×3 (02:02→17:53)
[2021-02-16] MEDS: SODIUM CHLORIDE FLUSH 0.9% 10 ML SYRINGE IVP SCH ×3 (02:04→15:58)
[2021-02-16 05:41] LABS: BASOPHILS % (AUTO) 0.2 %; EOSINOPHILS # (AUTO) 0.2 10^3/uL (0.0-0.7); EOSINOPHILS % (AUTO) 2.1 %; HGB - HEMOGLOBIN 12.2 g/dL (14.0-18.0); LYMPHOCYTES # (AUTO) 0.4 10^3/uL (1.5-3.5); LYMPHOCYTES % (AUTO) 4.1 %; MEAN CORPUSCULAR HEMOGLOBIN 33.5 pg (27.0-31.0); MEAN CORPUSCULAR HGB CONC 33.9 g/dL (32.0-36.0); MEAN CORPUSCULAR VOLUME 98.9 fL (80.0-94.0); MEAN PLATELET VOLUME 9.1 fL (7.4-11.4); MONOCYTES # (AUTO) 0.9 10^3/uL (0.0-1.0); MONOCYTES % (AUTO) 9.3 %; NEUTROPHILS # (AUTO) 8.3 10^3/uL (1.5-6.6); PLT - PLATELET COUNT 200 10^3/uL (130-450); RED BLOOD COUNT 3.64 10^6/uL (4.70-6.10); RED CELL DISTRIBUTION WIDTH 14.6 % (12.0-15.0); WHITE BLOOD COUNT 9.9 x10^3/uL (4.8-10.8)
[2021-02-16 05:46] LABS: CALCIUM 7.5 mg/dL (8.5-10.3); CREATININE 0.6 mg/dL (0.6-1.2); POTASSIUM 3.1 mmol/L (3.5-5.0)
[2021-02-16] MEDS ORDERED: LORazepam 2 MG/ML VIAL IVP PRN (07:51)
[2021-02-16] MEDS: BUDESONIDE 0.5 MG/2 ML NEB INH SCH ×2 (07:54→20:54)
[2021-02-16] MEDS: IPRATROPIUM/ALBUTEROL 3 ML NEB INH PRN ×2 (07:54→20:54)
[2021-02-16] MEDS ORDERED: POTASSIUM CHLORIDE 20 MEQ TABLET PO ONE (08:00)
[2021-02-16] MEDS ORDERED: MAGNESIUM SULFATE 2 GRAM 2 GM/50 ML BAG IV ONE (08:00)
--- NOTE | 2021-02-16 08:06 | Discharge Plan ---
Discharge Plan Condition: Serious Instruction Topics: Bronchiolitis, Bronchiolitis Dc , Prednisone tablets No Smoking: If you smoke, Please STOP! Call for help.
[2021-02-16] MEDS: ENOXAPARIN 40 MG/0.4 ML SYRINGE SUBQ SCH (08:39)
[2021-02-16] MEDS: FAMOTIDINE 20 MG TABLET PO SCH ×2 (08:39→20:04)
[2021-02-16] MEDS: amLODIPine 5 MG TABLET PO SCH (08:39)
[2021-02-16] MEDS: chlordiazePOXIDE 25 MG CAPSULE PO SCH ×2 (08:40→20:04)
[2021-02-16] MEDS: THIAMINE 100 MG TABLET PO SCH (08:40)
[2021-02-16] MEDS: SODIUM CHLORIDE 0.9% 1,000 ML IV SCH (08:42)
[2021-02-16] MEDS: PRENATAL VITAMIN TABLET PO SCH (08:42)
[2021-02-16] MEDS: POTASSIUM CHLOR 10 MEQ/100 ML 10 MEQ/100 ML BAG IV SCH ×4 (09:30→13:03)
--- NOTE | 2021-02-16 11:11 | PHARMACY PROGRESS NOTE ---
- Best Possible Medication History Admit Date and Time: 02/15/212013 Processed by: Pharmacy Medication History completed: Yes Patient Interview: Completed Secondary Source(s): Insurance records Patient interview conducted by sewer and drain technician, Jn. Patient does not seem very familiar with the doses of his medications but can recall the names for the most part. Insurance fill history used as well to help determine what doses patient is on. Patient reports he does not take Keppra which was on his historic medication list. Order appears to have been entered in 2016 and there is no recent fill history so medication was removed from list. As the person ultimately responsible for medication therapy, providers are able to order a medication from an existing home medication list in [facility] via the "Reconcile Routine" prior to Confirmation of that medication by ground support equipment mechanic. Such practice is discouraged except when the physician, in their clinical judgment, deems that a medical need exists for a medication without regard to previous use.
[2021-02-16] MEDS: CALCIUM CARBONATE CHEW 500 MG TABLET PO SCH (11:57)
[2021-02-16] MEDS: CHOLECALCIFEROL 400 UNIT TABLET PO SCH (12:00)
[2021-02-16] MEDS: WINE 187 ML BOTTLE PO SCH (17:07)
--- NOTE | 2021-02-16 17:16 | PROVIDER PROGRESS NOTE ---
Assessment/Plan - Problem List (1) Left acetabular fracture Qualifiers: Encounter type: subsequent encounter Sublocation of acetabulum: unspecified portion of acetabulum Fracture type: closed Fracture alignment: nondisplaced Assessment/Plan: Dr. Jeffrey Antonio with orthopedic surgery was contacted by Dr. Mccullough in the ED. The fracture is deemed to be in operable. However the patient is in pain with bearing weight/ambulate. Pain management as needed ordered. PT evaluated the patient and gave recommendations. I called the and spoke to her (later she came in, we spoke at bedside) and informed her that he needs further adjustment of his BP medications, more IV fluids and more evaluation by PT. The patient might possibly need temporary SNF placement. (2) Hypotension Assessment/Plan: During the evaluation with PT, the patient stood to walk just from bedside to chair and stated that he was very dizzy. Sitting in the chair his blood pressure was stable. The PT noticed that he was shaky/tremulous and very weak when that happened. Orthostatic vital sign checks were ordered to be done every shift: Supine blood pressure 105/74, sitting 116/73 and standing 99/72. He is not orthostatic but has very low blood pressure. He is not safe for discharge home today therefore. I called the and spoke to her and informed her that he needs further management of his medications, more IV fluids and more evaluation by PT (3) Bronchiolitis Assessment/Plan: Chronic probl;em/ DuoNeb ordered as needed. Continue budesonide. Patient weaned off supplemental oxygen. 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 in several years. He is on chronic prednisone as needed which he takes when he feels an exacerbation starting and knows to taper it down in 3-14 days. He said he has been doing that for many years, and the cnfirmed (in a phone xcxall with me), that he does know how to taper steroids. He has been advised of the effects of long-term steroid use to his bones, blood glucose level and mood. He expresses understanding. (4) Hx of essential hypertension Assessment/Plan: He was on amlodipine at home. His amlodipine is on hold. He needs IV fluids. Orthostatic vital sign checks have been ordered every shift (5) Cachexia Assessment/Plan: He weighs only 70 pounds and has BMI of 12. This has been rechecked and is confirmed. The patient told me and the confirmed that the patient has no appetite and that it is a chore for him to eat. He may possibly have cachexia related to his severe lung disease or part of his alcohol abuse. We will order dietary consult. I advised the at bedside that he needs protein with every meal, she is the meal maker. (6) Alcohol abuse Assessment/Plan: Blood alcohol level was 154 at admission. He told me, and told the admitting doctor, that he drinks several beers in the afternoon and 2 glasses of wine with each dinner. I noticed that he has intermittent tremulousness of his lower jaw and his right hand. I spoke to the by phone and asked whether he ever had tremulousness or withdrawal. She admitted that his first seizure was an alcohol withdrawal seizure when he "stopped drinking cold turkey" We ordered CIWA protocol, prn Ativan and scheduled Librium, as well as wine only with dinner. We ordered Thiamine and MOV daily. (7) History of seizures Assessment/Plan: As above, He has had alcohol withdrawal seizures. This is perhaps why he does not need to take daily antiepileptics. For this reason, alcohol with dinner was ordered and he is on a CIWA protocol with prn Ativan and scheduled Librium. (8) Hyponatremia Assessment/Plan: Suspect this is caused by poor p.o. intake and excessive alcohol use. Because of low blood pressure, IV with NS has been started. We will follow BMP daily, planning to correct sodium very slowly. (9) Hypokalemia Assessment/Plan: Replace with K riders and orally. Follow BMP daily. (10) Hypoxia Assessment/Plan: Resolved. He was titrated down to R.A., off O2 per n.c. - Current Meds Current Meds: Current Medications Generic Name Dose Route Start Last Admin Trade Name Freq PRN Reason Stop Dose Admin Hydrocodone Bitart/Acetaminophen 1 tab 02/15/21 20:14 02/16/21 12:07 Hydrocod/Acetam 5/325 Mg Tablet PO 1 tab Q4HR PRN Administration Pain 5 to 7 Albuterol/Ipratropium 3 ml 02/15/21 20:41 02/16/21 07:54 Ipratropium/Albuterol 3 Ml Neb INH 3 ml Q4HR PRN Administration Wheezing Amlodipine Besylate 10 mg 05/24/21 09:00 02/16/21 08:39 Amlodipine 5 Mg Tablet PO 10 mg DAILY TESFAYE Administration Budesonide 0.5 mg 02/16/21 07:00 02/16/21 07:54 Budesonide 0.5 Mg/2 Ml Neb INH 0.5 mg RTBID TESFAYE Administration Calcium Carbonate/Glycine 500 mg 02/16/21 12:00 02/16/21 11:57 Calcium Carbonate Chew 500 Mg Tablet PO 500 mg DAILY TESFAYE Administration Chlordiazepoxide HCl 25 mg 02/15/21 21:00 02/16/21 08:40 Chlordiazepoxide 25 Mg Capsule PO 25 mg Q12H TESFAYE Administration Cholecalciferol 800 unit 02/16/21 12:00 02/16/21 12:00 Cholecalciferol 400 Unit Tablet PO 800 unit DAILY TESFAYE Administration Enoxaparin Sodium 40 mg 02/16/21 09:00 02/16/21 08:39 Enoxaparin 40 Mg/0.4 Ml Syringe SUBQ 40 mg DAILY TESFAYE Administration Famotidine 20 mg 02/15/21 21:00 02/16/21 08:39 Famotidine 20 Mg Tablet PO 20 mg BID TESFAYE Administration Hydromorphone HCl 0.5 mg 02/15/21 20:14 02/16/21 12:59 Hydromorphone 0.5 Mg/0.5 Ml Syringe IVP 0.5 mg Q2H PRN Administration Pain 8 to 10 Sodium Chloride 1,000 mls @ 60 mls/hr 02/16/21 08:00 02/16/21 08:42 Normal Saline 0.9% IV 60 mls/hr .[id number] TESFAYE Administration Ketorolac Tromethamine 30 mg 02/16/21 00:37 02/16/21 08:38 Ketorolac 30 Mg/Ml Vial IVP 02/21/21 00:36 30 mg Q6HR PRN Administration PAIN Multivit/Folic Acid/Iron 1 tab 02/16/21 08:00 02/16/21 08:42 Vitamin Tablet PO 1 tab DAILYWM TESFAYE Administration Sodium Chloride 10 ml 02/15/21 20:14 02/16/21 03:28 Sodium Chloride Flush 0.9% 10 Ml Syringe IVP 10 ml PRN PRN Administration NEEDED PER PROVIDER ORDERS Sodium Chloride 10 ml 02/16/21 01:00 02/16/21 15:58 Sodium Chloride Flush 0.9% 10 Ml Syringe IVP Not Given 0100,0900,1700 TESFAYE Thiamine HCl 100 mg 02/16/21 09:00 02/16/21 08:40 Thiamine 100 Mg Tablet PO 100 mg DAILY TESFAYE Administration Wine 187 ml 02/16/21 18:00 02/16/21 17:07 Wine 187 Ml Bottle PO 187 ml 1800 TESFAYE Administration - Lab Result Fish Bone Diagrams: 02/16/21 05:16 02/16/21 05:16 - Additional Planning My Orders: My Active Orders 02/16/21 07:51 Vital Signs [RC] Q4HR Social Work Consult [CONS] Routine LORazepam INJ [Ativan Inj (Vial)] 2 mg IVP Q30M PRN 02/16/21 08:00 Vitamin [Trinatal Rx 1] 1 tab PO DAILYWM Sodium Chloride 0.9% [Normal Saline 0.9%] 1,000 ml IV 60 mls/hr 02/16/21 08:16 Miscellaenous Nursing Order [RC] ONCE 02/16/21 12:00 Calcium Carbonate [Tums] 500 mg PO DAILY Cholecalciferol [Vitamin D3] 800 unit PO DAILY 02/16/21 12:57 Orthostatic [Vital Signs - Orthostatic] [RC] QSHIFT 02/16/21 18:00 Wine 187 ml PO 1800 Subjective - Subjective Patient Reports: Dizzines Objective Vital Signs: Vital Signs - 24 hr 02/15/21 02/15/21 02/15/21 17:44 18:12 20:04 Temperature 36.8 C Heart Rate 116 H 114 H 95 Heart Rate [ Brachial] Respiratory 18 22 18 Rate Blood Pressure 132/95 H 127/86 H 147/130 H Blood Pressure [Right Brachial artery] O2 Saturation 85 L 97 96 02/15/21 02/15/21 02/16/21 21:15 23:10 00:00 Temperature 36.5 C 36.5 C 36.7 C Heart Rate 90 Heart Rate [ 99 106 H Brachial] Respiratory 20 20 18 Rate Blood Pressure Blood Pressure 160/85 H 146/90 H [Right Brachial artery] O2 Saturation 97 96 84 L 02/16/21 02/16/21 02/16/21 00:12 03:15 07:57 Temperature 36.7 C Heart Rate 95 Heart Rate [ 88 Brachial] Respiratory 20 16 Rate Blood Pressure Blood Pressure 144/81 H [Right Brachial artery] O2 Saturation 98 99 02/16/21 02/16/21 02/16/21 08:00 13:00 15:49 Temperature 37.1 C 36.9 C 36.6 C Heart Rate Heart Rate [ 105 H 90 71 Brachial] Respiratory 18 16 16 Rate Blood Pressure Blood Pressure 135/83 H 140/84 H 127/98 H [Right Brachial artery] O2 Saturation 98 98 94 Oxygen O2 Source Room air Oxygen Flow Rate 2 I&O (Last 24 Hrs): Intake and Output Totals x24h 02/14/21 02/15/21 02/16/21 23:59 23:59 23:59 Intake Total 316 1305 Output Total 1375 Balance 316 -70 General: Alert, Oriented x3 HEENT: Mucous membr. moist/pink, Other (Cachectic, eyes sunken) Neck: Supple, No JVD Neuro: Alert, Other (Written fine tremor of his lower jaw in his right arm and hand) Cardiovascular: Regular rate, No murmurs Respiratory: No respiratory distress, Breath sounds nml Abdomen: Soft, No tenderness Extremities: No edema, Other (Cachectic, decreased muscle tone and has skin tenting) - Results Results: Laboratory Results WBC 9.9 x10^3/uL (4.8-10.8) 02/16/21 05:16 RBC 3.64 10^6/uL (4.70-6.10) L 02/16/21 05:16 Hgb 12.2 g/dL (14.0-18.0) L 02/16/21 05:16 Hct 36.0 % (42.0-52.0) L 02/16/21 05:16 MCV 98.9 fL (80.0-94.0) H 02/16/21 05:16 MCH 33.5 pg (27.0-31.0) H 02/16/21 05:16 MCHC 33.9 g/dL (32.0-36.0) 02/16/21 05:16 RDW 14.6 % (12.0-15.0) 02/16/21 05:16 Plt Count 200 10^3/uL (130-450) 02/16/21 05:16 MPV 9.1 fL (7.4-11.4) 02/16/21 05:16 Neut # (Auto) 8.3 10^3/uL (1.5-6.6) H 02/16/21 05:16 Lymph # (Auto) 0.4 10^3/uL (1.5-3.5) L 02/16/21 05:16 Smyth # (Auto) 0.9 10^3/uL (0.0-1.0) 02/16/21 05:16 Eos # (Auto) 0.2 10^3/uL (0.0-0.7) 02/16/21 05:16 Baso # (Auto) 0.0 10^3/uL (0.0-0.1) 02/16/21 05:16 Absolute Nucleated RBC 0.00 x10^3/uL 02/16/21 05:16 Nucleated RBC % 0.0 /100WBC 02/16/21 05:16 PT 11.8 secs (9.9-12.6) 02/15/21 18:21 INR 1.1 (0.8-1.2) 02/15/21 18:21 Sodium 131 mmol/L (135-145) L 02/16/21 05:16 Potassium 3.1 mmol/L (3.5-5.0) L 02/16/21 05:16 Chloride 91 mmol/L (101-111) L 02/16/21 05:16 Carbon Dioxide 31 mmol/L (21-32) 02/16/21 05:16 Anion Gap 9.0 (6-13) 02/16/21 05:16 BUN 7 mg/dL (6-20) 02/16/21 05:16 Creatinine 0.6 mg/dL (0.6-1.2) 02/16/21 05:16 Estimated GFR (MDRD) 136 (>89) 02/16/21 05:16 Glucose 121 mg/dL (70-100) H 02/16/21 05:16 Calcium 7.5 mg/dL (8.5-10.3) L 02/16/21 05:16 Magnesium 1.6 mg/dL (1.7-2.8) L 02/15/21 18:21 Total Bilirubin 0.5 mg/dL (0.2-1.0) 02/15/21 18:21 AST 57 IU/L (10-42) H 02/15/21 18:21 ALT 41 IU/L (10-60) 02/15/21 18:21 Alkaline Phosphatase 49 IU/L (42-121) 02/15/21 18:21 Total Protein 6.3 g/dL (6.7-8.2) L 02/15/21 18:21 Albumin 3.7 g/dL (3.2-5.5) 02/15/21 18:21 Globulin 2.6 g/dL (2.1-4.2) 02/15/21 18:21 Albumin/Globulin Ratio 1.4 (1.0-2.2) 02/15/21 18:21 Nasal Adenovirus (PCR) NOT DETECTED 02/15/21 18:39 Nasal B. parapertussis DNA (PCR) NOT DETECTED 02/15/21 18:39 Nasal Coronavir 229E PCR NOT DETECTED 02/15/21 18:39 Nasal Coronavir HKU1 PCR NOT DETECTED 02/15/21 18:39 Nasal Coronavir NL63 PCR NOT DETECTED 02/15/21 18:39 Nasal Coronavir OC43 PCR NOT DETECTED 02/15/21 18:39 Nasal Enterovir/Rhinovir PCR NOT DETECTED 02/15/21 18:39 Nasal Influenza B PCR NOT DETECTED 02/15/21 18:39 Nasal Influenza A PCR NOT DETECTED 02/15/21 18:39 Nasal Parainfluen 1 PCR NOT DETECTED 02/15/21 18:39 Nasal Parainfluen 2 PCR NOT DETECTED 02/15/21 18:39 Nasal Parainfluen 3 PCR NOT DETECTED 02/15/21 18:39 Nasal Parainfluen 4 PCR NOT DETECTED 02/15/21 18:39 Nasal RSV (PCR) NOT DETECTED 02/15/21 18:39 Nasal B.pertussis DNA PCR NOT DETECTED 02/15/21 18:39 Nasal C.pneumoniae (PCR) NOT DETECTED 02/15/21 18:39 Fan Human Metapneumo PCR NOT DETECTED 02/15/21 18:39 Nasal M.pneumoniae (PCR) NOT DETECTED 02/15/21 18:39 Nasal SARS-CoV-2 (PCR) NOT DETECTED 02/15/21 18:39 Ethyl Alcohol 154.3 mg/dL 02/15/21 18:21 - Procedures Procedures: Procedures EXCISION OF LEFT BREAST, OPEN APPROACH (09/02/15) OTHER LOCAL DESTRUC SKIN (12/14/13)
[2021-02-17] MEDS: SODIUM CHLORIDE FLUSH 0.9% 10 ML SYRINGE IVP SCH ×3 (00:04→16:41)
[2021-02-17] MEDS: HYDROcod/ACETAM 5/325 MG TABLET PO PRN ×2 (00:12→04:22)
[2021-02-17] MEDS: SODIUM CHLORIDE 0.9% 1,000 ML IV SCH ×2 (00:13→16:54)
[2021-02-17 05:30] LABS: BASOPHILS % (AUTO) 0.2 %; EOSINOPHILS % (AUTO) 0.2 %; HCT - HEMATOCRIT 35.7 % (42.0-52.0); HGB - HEMOGLOBIN 11.7 g/dL (14.0-18.0); LYMPHOCYTES # (AUTO) 0.5 10^3/uL (1.5-3.5); LYMPHOCYTES % (AUTO) 5.7 %; MEAN CORPUSCULAR HEMOGLOBIN 33.1 pg (27.0-31.0); MEAN CORPUSCULAR HGB CONC 32.8 g/dL (32.0-36.0); MEAN CORPUSCULAR VOLUME 101.1 fL (80.0-94.0); MEAN PLATELET VOLUME 9.2 fL (7.4-11.4); MONOCYTES # (AUTO) 0.5 10^3/uL (0.0-1.0); NEUTROPHILS # (AUTO) 7.2 10^3/uL (1.5-6.6); NEUTROPHILS % (AUTO) 87.7 %; PLT - PLATELET COUNT 153 10^3/uL (130-450); RED BLOOD COUNT 3.53 10^6/uL (4.70-6.10); RED CELL DISTRIBUTION WIDTH 14.6 % (12.0-15.0); WHITE BLOOD COUNT 8.2 x10^3/uL (4.8-10.8)
[2021-02-17 05:38] LABS: BUN - BLOOD UREA NITROGEN < 5 mg/dL (6-20); CARBON DIOXIDE - CO2 29 mmol/L (21-32); CHLORIDE 92 mmol/L (101-111); CREATININE 0.5 mg/dL (0.6-1.2); POTASSIUM 4.6 mmol/L (3.5-5.0); SODIUM 129 mmol/L (135-145)
[2021-02-17 05:39] LABS: CALCIUM 8.1 mg/dL (8.5-10.3); GFR - MDRD 168 (>89); GLUCOSE 105 mg/dL (70-100)
[2021-02-17] MEDS: BUDESONIDE 0.5 MG/2 ML NEB INH SCH ×2 (07:36→20:42)
[2021-02-17] MEDS: IPRATROPIUM/ALBUTEROL 3 ML NEB INH PRN ×2 (07:36→20:42)
[2021-02-17] MEDS: PRENATAL VITAMIN TABLET PO SCH (07:44)
[2021-02-17] MEDS: FAMOTIDINE 20 MG TABLET PO SCH ×2 (08:53→20:09)
[2021-02-17] MEDS: THIAMINE 100 MG TABLET PO SCH (08:53)
[2021-02-17] MEDS: chlordiazePOXIDE 25 MG CAPSULE PO SCH ×2 (08:53→20:08)
[2021-02-17] MEDS: CHOLECALCIFEROL 400 UNIT TABLET PO SCH (08:54)
[2021-02-17] MEDS: CALCIUM CARBONATE CHEW 500 MG TABLET PO SCH (08:54)
[2021-02-17] MEDS: amLODIPine 5 MG TABLET PO SCH (08:54)
[2021-02-17] MEDS: ENOXAPARIN 40 MG/0.4 ML SYRINGE SUBQ SCH (08:54)
--- NOTE | 2021-02-17 11:49 | PROVIDER PROGRESS NOTE ---
Subjective - Prog Note Date Prog Note Date: 02/17/21 Prog Note Time: 11:00 - Subjective Pt reports feeling: Improved Subjective: is at the bedside for my second evaluation with him. This morning he was upright, eating his breakfast. Says is the most is eaten in 2 weeks. No nausea, vomiting, abdominal pain. His tremulousness seems to have resolved. We discussed his acetabular fracture, pain management. His overall frailty. Because of the cachexia and alcohol abuse his prognosis for the down the road is that of a diminished life span. If he falls and breaks his hip the mortality associated with that with any year is also significant. I discussed the fact that he wants to go home with home health PT. She disag anaya with that. I explained that that is a conversation she and her should have. He is adamant he wants to go home and she is adamant that she cannot take care of her because she works full-time. Current Medications - Current Medications Current Medications: Active Medications Acetaminophen (Acetaminophen 325 Mg Tablet) 650 mg PO Q4HR PRN PRN Reason: Pain 1 to 4 Hydrocodone Bitart/Acetaminophen (Hydrocod/Acetam 5/325 Mg Tablet) 1 tab PO Q4HR PRN PRN Reason: Pain 5 to 7 Last Admin: 02/17/21 04:22 Dose: 1 tab Documented by: Albuterol/Ipratropium (Ipratropium/Albuterol 3 Ml Neb) 3 ml INH Q4HR PRN PRN Reason: Wheezing Last Admin: 02/17/21 07:36 Dose: 3 ml Documented by: Amlodipine Besylate (Amlodipine 5 Mg Tablet) 10 mg PO DAILY [facility] Last Admin: 02/17/21 08:54 Dose: 10 mg Documented by: Budesonide (Budesonide 0.5 Mg/2 Ml Neb) 0.5 mg INH RTBID [facility] Last Admin: 02/17/21 07:36 Dose: 0.5 mg Documented by: Calcium Carbonate/Glycine (Calcium Carbonate Chew 500 Mg Tablet) 500 mg PO DAILY [facility] Last Admin: 02/17/21 08:54 Dose: 500 mg Documented by: Chlordiazepoxide HCl (Chlordiazepoxide 25 Mg Capsule) 25 mg PO Q12H [facility] Last Admin: 02/17/21 08:53 Dose: 25 mg Documented by: Cholecalciferol (Cholecalciferol 400 Unit Tablet) 800 unit PO DAILY [facility] Last Admin: 02/17/21 08:54 Dose: 800 unit Documented by: Enoxaparin Sodium (Enoxaparin 40 Mg/0.4 Ml Syringe) 40 mg SUBQ DAILY [facility] Last Admin: 02/17/21 08:54 Dose: 40 mg Documented by: Famotidine (Famotidine 20 Mg Tablet) 20 mg PO BID [facility] Last Admin: 02/17/21 08:53 Dose: 20 mg Documented by: Hydromorphone HCl (Hydromorphone 0.5 Mg/0.5 Ml Syringe) 0.5 mg IVP Q2H PRN PRN Reason: Pain 8 to 10 Last Admin: 02/16/21 12:59 Dose: 0.5 mg Documented by: Sodium Chloride (Normal Saline 0.9%) 1,000 mls @ 60 mls/hr IV .[id number] [facility] Last Admin: 02/17/21 00:13 Dose: 60 mls/hr Documented by: Ketorolac Tromethamine (Ketorolac 30 Mg/Ml Vial) 30 mg IVP Q6HR PRN PRN Reason: PAIN Stop: 02/21/21 00:36 Last Admin: 02/16/21 08:38 Dose: 30 mg Documented by: Lorazepam (Lorazepam 2 Mg/Ml Vial) 2 mg IVP Q30M PRN; Protocol PRN Reason: CIWA >8 Ondansetron HCl (Ondansetron 4 Mg/2 Ml Vial) 4 mg IVP Q6HR PRN PRN Reason: Nausea / Vomiting Last Admin: 02/16/21 21:11 Dose: 4 mg Documented by: Multivit/Folic Acid/Iron ( Vitamin Tablet) 1 tab PO DAILYWM [facility] Last Admin: 02/17/21 07:44 Dose: 1 tab Documented by: Sodium Chloride (Sodium Chloride Flush 0.9% 10 Ml Syringe) 10 ml IVP PRN PRN PRN Reason: NEEDED PER PROVIDER ORDERS Last Admin: 02/16/21 03:28 Dose: 10 ml Documented by: Sodium Chloride (Sodium Chloride Flush 0.9% 10 Ml Syringe) 10 ml IVP 0100,0900,1700 [facility] Last Admin: 02/17/21 08:54 Dose: 10 ml Documented by: Thiamine HCl (Thiamine 100 Mg Tablet) 100 mg PO DAILY [facility] Last Admin: 02/17/21 08:53 Dose: 100 mg Documented by: Wine (Wine 187 Ml Bottle) 187 ml PO 1800 [facility] Last Admin: 02/16/21 17:07 Dose: 187 ml Documented by: Amlodipine Besylate 10 mg PO DAILY 09/01/15 Budesonide [Pulmicort] 120 puffs INH ONCE PRN 09/01/15 Potassium Chloride [Micro-K] 10 meq PO BID 09/01/15 Cetirizine HCl [Zyrtec] 1 tab PO DAILY 09/02/15 Objective - Vital Signs/Intake & Output Reviewed Vital Signs: Yes Vital Signs: Vital Signs x48h Temp Pulse Pulse Resp BP Pulse Ox 02/17/21 11:16 37.1 C 97 18 122/75 93 02/17/21 08:00 37 C 100 18 120/70 92 02/17/21 07:36 104 H 18 02/17/21 04:16 37.4 C 100 18 116/76 93 Intake & Output: Intake & Output 02/14/21 02/15/21 02/16/21 02/17/21 23:59 23:59 23:59 23:59 Intake Total 316 1545 1271 Output Total 2025 500 Balance 316 -480 771 - Objective General Appearance: positive: Alert, Other (Cachectic, but otherwise well groomed. No acute distress.Rib cage visible, bilateral temporal wasting, severely diminished muscle mass of his limbs.) Eyes Bilateral: positive: PERRL, EOMI ENT: positive: No signs of dehydration Neck: positive: No JVD Respiratory: positive: No respiratory distress, Other (Very quiet lung sounds throughout all lung beaver, moderately diminished.). negative: Wheezes, Rales, Rhonchi Abdomen: positive: Non-tender, No organomegaly, Nml bowel sounds, No distention. negative: Guarding, Rebound Skin: positive: Warm, Dry Extremities: positive: No pedal edema, Other (left hip is tender.) Neurologic/Psychiatric: positive: Oriented x3, CN's nml (2-12). negative: Motor nml (Moderate generalized weakness. Left leg quite tender at hip. Cannot weight-bear. Although I am not seeing tremors right now, nursing reports that he still has intermittent fine tremors throughout the day.) - Lab Results Fish Bones: 02/17/21 05:18 02/17/21 05:18 Other Labs: Lab Results x24hrs 02/17/21 02/17/21 Range/Units 05:18 05:18 WBC 8.2 (4.8-10.8) x10^3/uL RBC 3.53 L (4.70-6.10) 10^6/uL Hgb 11.7 L (14.0-18.0) g/dL Hct 35.7 L (42.0-52.0) % MCV 101.1 H (80.0-94.0) fL MCH 33.1 H (27.0-31.0) pg MCHC 32.8 (32.0-36.0) g/dL RDW 14.6 (12.0-15.0) % Plt Count 153 (130-450) 10^3/uL MPV 9.2 (7.4-11.4) fL Neut # (Auto) 7.2 H (1.5-6.6) 10^3/uL Lymph # (Auto) 0.5 L (1.5-3.5) 10^3/uL [place] # (Auto) 0.5 (0.0-1.0) 10^3/uL Eos # (Auto) 0.0 (0.0-0.7) 10^3/uL Baso # (Auto) 0.0 (0.0-0.1) 10^3/uL Absolute Nucleated RBC 0.00 x10^3/uL Nucleated RBC % 0.0 /100WBC Sodium 129 L (135-145) mmol/L Potassium 4.6 (3.5-5.0) mmol/L Chloride 92 L (101-111) mmol/L Carbon Dioxide 29 (21-32) mmol/L Anion Gap 8.0 (6-13) BUN < 5 L (6-20) mg/dL Creatinine 0.5 L (0.6-1.2) mg/dL Estimated GFR (MDRD) 168 (>89) Glucose 105 H (70-100) mg/dL Calcium 8.1 L (8.5-10.3) mg/dL ABX Reporting Has patient been on IV antibiotics over the past 48 hours?: No Assessment/Plan - Problem List (1) Left acetabular fracture Impression: Encounter type: subsequent encounter Sublocation of acetabulum: unspecified portion of acetabulum Fracture type: closed Fracture alignment: nondi splaced Assessment/Plan: Dr. Jeffrey Antonio with orthopedic surgery was contacted by Dr. Mccullough in the ED. The fracture is deemed as not requiring surgery. He has been placed in observation status. He is getting as needed pain management with medication. He would like to go home with home health PT but the states there is no way she can take care of him and she works full- time. Daughter is visiting but she plans on leaving in the next 10 days. Plan: PT evaluation and treatment with their recommendations I will discuss with discharge planning since he may have to go to intermediate facility depending on PTs evaluation Long conversation with and patient about his frailty, decreased mobility, and prognosis. (2) Orthostatis Hypotension Assessment/Plan: This morning he continues to be orthostatic. Laying he is 110/70 with a pulse of 105. Sitting he is 108/72 with a pulse 125. Standing he is 87/66 with a pulse of 132. Continue to holds meds and continue IVF. He is eating more now. (3) Bronchiolitis, chronic Assessment/Plan: Chronic problem That he feels is the cause of his overall frailty, weakness, poor appetite and cachexia. He does not appear to have any insight that his alcohol abuse may be contributing. He is defensive and states that it is only "you all's opinion" that he drinks too much. He states that he decides what is "too much". DuoNeb ordered as needed. Continue budesonide. Patient weaned off supplemental oxygen. 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 He is on chronic prednisone as needed which he takes when he feels an exacerbation starting and knows to taper it down in 3-14 days. He said he has been doing that for many years, and the confirmed (in a phone call with admitting hospitalist), that he does know how to taper steroids. He has been advised of the effects of long-term steroid use to his bones, blood glucose level and mood. (4) Hx of essential hypertension Assessment/Plan: Continue to hold his home medication of amlodipine IV fluids to continue. Orthostatic vital sign checks have been ordered every shift (5) Cachexia Assessment/Plan: He weighs only 70 pounds and has BMI of 12. This has been rechecked and is confirmed. The patient told me and the confirmed that the patient has no appetite and that it is a chore for him to eat. He may possibly have cachexia related to his severe lung disease or part of his alcohol abuse.He tells me that he lost a lot of weight in the last month because for 2 weeks "I had a terrible stomach flu and I could not eat". But he denied fever, chills, bloody diarrhea, abdominal pain.His was at the bedside on admission, and his nutrition was discussed with her as well. She is the meal maker, and she has been asked to supplement with a protein drink every meal. Dietary consult ordered and pending (6) Alcohol abuse Assessment/Plan: Blood alcohol level was 154 at admission. He told the admitting doctor and ER MD that he drinks several beers in the afternoon and 2 glasses of wine with each dinner. He shared with me today that there are days that he does not drink at all. It was noticed that he has intermittent tremulousness of his lower jaw and his right hand. The hospitalist spoke to the by phone and asked whether he ever had tremulousness or withdrawal. She admitted that his first seizure was an alcohol withdrawal seizure when he "stopped drinking cold turkey" We ordered CIWA protocol, prn Ativan and scheduled Librium, as well as wine only with dinner. We ordered Thiamine and MOV daily. (7) History of seizures Assessment/Plan: As above, He has had alcohol withdrawal seizures. This is perhaps why he does not need to take daily antiepileptics. For this reason, alcohol with dinner was ordered and he is on a CIWA protocol with prn Ativan and scheduled Librium. (8) Hyponatremia Assessment/Plan: Suspect this is caused by poor p.o. intake and excessive alcohol use. Because of low blood pressure, IV with NS has been started. We will follow BMP daily, planning to correct sodium very slowly. (9) Hypokalemia Assessment/Plan: Replace with K riders and orally. Follow BMP daily. (10) Hypoxia Assessment/Plan: Resolved. He was titrated down to R.A., off O2 per n.c.
[2021-02-17] MEDS: WINE 187 ML BOTTLE PO SCH (17:33)
[2021-02-18] MEDS: HYDROcod/ACETAM 5/325 MG TABLET PO PRN (00:27)
[2021-02-18] MEDS: SODIUM CHLORIDE FLUSH 0.9% 10 ML SYRINGE IVP SCH ×2 (00:28→08:21)
[2021-02-18 05:39] LABS: BASOPHILS % (AUTO) 0.3 %; EOSINOPHILS % (AUTO) 0.5 %; HCT - HEMATOCRIT 33.9 % (42.0-52.0); HGB - HEMOGLOBIN 11.3 g/dL (14.0-18.0); LYMPHOCYTES # (AUTO) 0.5 10^3/uL (1.5-3.5); LYMPHOCYTES % (AUTO) 7.8 %; MEAN CORPUSCULAR HEMOGLOBIN 33.6 pg (27.0-31.0); MEAN CORPUSCULAR HGB CONC 33.3 g/dL (32.0-36.0); MEAN CORPUSCULAR VOLUME 100.9 fL (80.0-94.0); MEAN PLATELET VOLUME 9.7 fL (7.4-11.4); MONOCYTES # (AUTO) 0.5 10^3/uL (0.0-1.0); MONOCYTES % (AUTO) 8.3 %; NEUTROPHILS # (AUTO) 5.2 10^3/uL (1.5-6.6); NEUTROPHILS % (AUTO) 82.6 %; PLT - PLATELET COUNT 177 10^3/uL (130-450); RED BLOOD COUNT 3.36 10^6/uL (4.70-6.10); RED CELL DISTRIBUTION WIDTH 14.3 % (12.0-15.0); WHITE BLOOD COUNT 6.3 x10^3/uL (4.8-10.8)
[2021-02-18 05:48] LABS: BUN - BLOOD UREA NITROGEN < 5 mg/dL (6-20); CALCIUM 8.9 mg/dL (8.5-10.3); CARBON DIOXIDE - CO2 29 mmol/L (21-32); CHLORIDE 95 mmol/L (101-111); CREATININE 0.5 mg/dL (0.6-1.2); GFR - MDRD 168 (>89); GLUCOSE 90 mg/dL (70-100); POTASSIUM 3.8 mmol/L (3.5-5.0); SODIUM 133 mmol/L (135-145)
[2021-02-18] MEDS: SODIUM CHLORIDE 0.9% 1,000 ML IV SCH (06:27)
[2021-02-18] MEDS: BUDESONIDE 0.5 MG/2 ML NEB INH SCH (07:34)
[2021-02-18] MEDS: IPRATROPIUM/ALBUTEROL 3 ML NEB INH PRN (07:34)
[2021-02-18] MEDS: FAMOTIDINE 20 MG TABLET PO SCH (08:21)
[2021-02-18] MEDS: CHOLECALCIFEROL 400 UNIT TABLET PO SCH (08:21)
[2021-02-18] MEDS: PRENATAL VITAMIN TABLET PO SCH (08:21)
[2021-02-18] MEDS: amLODIPine 5 MG TABLET PO SCH (08:21)
[2021-02-18] MEDS: THIAMINE 100 MG TABLET PO SCH (08:21)
[2021-02-18] MEDS: CALCIUM CARBONATE CHEW 500 MG TABLET PO SCH (08:21)
[2021-02-18] MEDS: chlordiazePOXIDE 25 MG CAPSULE PO SCH (08:24)
[2021-02-18] MEDS: ENOXAPARIN 40 MG/0.4 ML SYRINGE SUBQ SCH (08:24)
--- NOTE | 2021-02-18 08:29 | Discharge Plan ---
"Discharge Plan for SNF / [facility] - Discharge Plan And Transition Orders Problem Reviewed?: Yes Disposition: 03 SNF DC/Xfer Condition: Good Allergies and Adverse Reactions: Allergies Allergy/AdvReac Type Severity Reaction Status Date / Time No Known Drug Allergies Allergy Verified 02/15/21 18:04 Health Concerns: 65-year-old white male who weighs 70 pounds, chronic alcohol abuse, presented to the emergency room after mechanical fall. He tripped on a curb and fell on his left side. Work-up shows a left acetabular fracture. He is unable to bear weight or to walk due to the severe pain. He was placed in observation and had physical therapy evaluation. Due to his frailty, cachexia, diminished muscle mass, he is considered a fall risk. As such he will be transferred to half-way facility for rehabilitation to increase his strength to then allow him to return to home with independent living. Plan of Treatment: 1. Improve nutrition. While here he has been eating 75 to 100% of his meals. Please make sure he gets Thiamine, Folic acid. Multivit with minerals. 2. Improve strength and mobility so that he can stand to transfer, use a walker, and return to home to be able to dress himself and feed himself 3. He declines intervention for his alcohol abuse. States that it is a matter of interpretation about what alcohol abuse is defined as. And he does not feel that he has that problem. Care Goals: To return to home with independent living and to control pain from acetabular fracture. Assessment: Patient and understand our goals. is very enthusiastic about having him increase his strength before he can return home. - SNF / [facility] Transition Orders Admit to (Facility): [facility] Discharge Diagnosis: 1. Left acetabular fracture present on admission 2. Mechanical fall 3. Orthostatic hypotension 4. Chronic bronchiolitis 5. Hypertension 6. Cachexia 7. Alcohol abuse 8. History of alcohol withdrawal seizures none this admission 9. Hyponatremia, resolved 10. Hypokalemia, resolved 11. Hypoxia on admission, resolved Medicare Certification Statement: I certify that [facility] care is medically necessary on a continuing basis for any of the conditions for which she/he is receiving care during hospitalization. Notify PCP of admission and forward orders to primary provider for signature. Other Notification Orders: Call PCP immediately if patient develops dyspnea, chest pain/tightness or edema. Additional Bowel Program Orders: If no BM after 2 days, nurse may give M.O.M. 30ml PO PRN and/or ducolax Supp 1 IN and/or ANGELLA 250mg P.O., and/or senna 1-2 tabs PO. On day 3 nurse may give repeat above order until residents constipation is resolved. Annual Influenza Vaccine (between May 27 and December 24): Yes Two-step PPD per [facility] [phone] or approved exception documents: Yes Oxygen Orders: oxygen by [place] to keep O2 >89% Medication Orders: PLEASE REFER TO THE DISCHARGE MEDICATION LIST. Insulin Orders?: No - Medications New Prescriptions: HYDROcod/ACETAM 5/325 [[place] 5/325] 1 tab PO Q4HR PRN #30 tablet PRN Reason: Pain 5 to 7 Albuterol Sulf [Ventolin Hfa Inhaler] 2 puffs INH Q4HR PRN #18 gm PRN Reason: Shortness Of Air/Wheezing - Diet Type: Geriatric Texture: Regular Liquids: Thin May have monthly special meal: Yes - Therapies | Activity Therapy: Evaluation | Treat if indicated: PT, OT, Swallowing / ST Rehabilitation Potential: Maximize functional status, Return to independent living Activity: Wt Bearing as Tolerated Weight Bearing: Partial Weight Assistance Devices: Wheelchair, Walker Follow Up: with his PCP Sadi Morelos MD"
[2021-02-18] MEDS ORDERED: CARBOXYMETHYLCELLULOSE OPHTH DROPS EACHEYE PRN (08:32)
[2021-02-18] MEDS ORDERED: ONDANSETRON ODT 4 MG TABLET TL PRN (09:07)
[2021-02-18 11:31] VITALS: BP 124/70
--- NOTE | 2021-02-18 11:38 | DISCHARGE SUMMARY ---
Discharge Summary Admit Date: 02/15/21 Discharge Date: 02/18/21 Discharging Provider: Ashlyn Dos Santos MD Primary Care Provider: Sadi Morelos MD Code Status: Attempt Resuscitation Condition at Discharge: Good Discharge Disposition: 03 SNF DC/Xfer - DIAGNOSES Discharge Diagnoses with Status of Each Condition: 1. Left acetabular fracture 2. Mechanical fall 3. Orthostatic hypotension 4. Chronic bronchiolitis 5. Hypoxia, present on admission, resolved 6. Hypertension history 7. Cachexia, BMI 12, weight 70 pounds 8. Alcohol abuse with acute alcohol intoxication 9. History of alcohol withdrawal seizures 10. Hyponatremia, present on admission 11. 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 He has not seen his machine i coremaker in a very long time. He presented to the ED today with left hip pain and being unable to stand or walk. He went out for breakfast today and on his way back to his truck he tripped on the curb and fell on his left side. He did not hit his head or pass out. He was unable to stand on his own and required some help from his to get into the truck. His drove them back home. A couple of hours later he tried to stand and was unable to bear weight on his left leg. As a result EMS was called and he was brought to the ED for evaluation. Work-up in the ED included a CT of the left lower extremity which showed a non-displaced comminuted fracture of the anterior column of the left acetabulum, with the fracture extending into the roof of the left acetabulum. This was discussed with Dr. Jeffrey Antonio. It was deemed to be inoperable. Also in the ED he was noted to have an oxygen saturation of 85% on room air. The patient denied feeling dyspneic. His blood alcohol at time of admission was 154.3 As a result of his hypoxia, left hip pain and being unable to bear weight he was admitted for supplemental oxygen and further pain management. At bedside he denies any pain as long as he is not moving. He denies chest pain, dyspnea, abdominal pain, nausea, vomiting, fever or chills. - Past Medical History Cardiovascular: reports: Hypertension Respiratory: reports: Other (Constrictive bronchiolitis) Endocrine/Autoimmune: reports: None GI: reports: None : reports: None HEENT: reports: None Psych: reports: None Musculoskeletal: reports: None Derm: reports: None MRSA Hx?: No Other Past Medical History: Alcohol abuse - Past Surgical History General: reports: Colonoscopy, EGD Other past surgical history: Patient denies any past surgical history - CONSULTS | PROCEDURES Procedures: 1. chest x-ray without acute pulmonary process 2. Hip/pelvis x-ray with mild left hip degenerative changes. No acute bony abnormalities of the pelvis or left hip. 3. Lower extremity CT with nondisplaced comminuted fracture of the anterior column of the left acetabulum with fracture extending into the roof of the left acetabulum - HOSPITAL COURSE Hospital Course: The patient was placed in observation for pain management and physical therapy evaluation. We were concerned about alcohol withdrawal since his describes the patient is having gone through alcohol withdrawal and seizures in the past. The patient did have mild tremulousness, but never really required more than Librium as needed. The patient continues to deny that he has an alcohol problem. He states that his definition what is too much to drink and he disagrees with our definition of what is too much to drink. He cannot state why he is so cachectic and malnourished. States that he just has no appetite and intermittent "gastric flu" that will hit him from nowhere. After control of pain, and working with PT, the patient is too weak, with generalized deconditioning to safely return to home. His works full-time and she states that she cannot be there to help him when he requires assist to get up to ambulate for the bathroom, of eating, or getting a bath. As such she is requesting that he be placed temporarily in a longterm facility to get stronger and improve his nutrition. That way he can return to home with ability to ambulate without minimal assist and to be safely left alone at home. Pain was controlled with hydrocodone. He uses inhalers as needed. DVT prophylaxis with Lovenox was ongoing. He was treated with osteopenia with calcium and vitamin D. He was started on thiamine and folate. Wine with dinner was given. His amlodipine was held initially but resumed before discharge. Hypokalemia present during his stay was treated with potassium supplementation. On admission resolved. At discharge temperature is 36.7. Heart rate is 100. Blood pressure 124/70. We did do orthostatics before discharge and supine he is 124/75 with a heart rate of 96. Sitting he is 111/76 with a heart rate of 120. Standing he is 118/74 with a heart rate of 122. Respirations are 18. He is 95% on room air. He is sitting upright in his chair, ate 100% of his breakfast. No tremulousness, no diaphoresis, alert, oriented. 5 foot 8 inches tall and weighs 36.5 kg. Exam is remarkable for his cachexia with bilateral temporal wasting, and severe reduction in diffuse body muscle mass with very thin arms and legs. Neck is supple. No goiter or bruit. Lungs have diminished breath sounds diffusely with slightly prolonged I:E ratio but no wheezing. No respiratory distress. He is able to carry on a normal conversation without having to stop for gasping breaths. He has a regular rate and rhythm with a systolic ejection murmur. And abdomen that is with normal bowel sounds, nontender. Extremities are thin without edema. Neurologically he is diffusely weak. But he is able to sit in his chair, and feed himself, manipulate utensils, bring fluids to his mouth without assist. Greater than 30 minutes was spent coordinating discharge. - ALLERGIES Allergies/Adverse Reactions: Allergies Allergy/AdvReac Type Severity Reaction Status Date / Time No Known Drug Allergies Allergy Verified 02/15/21 18:04 - MEDICATIONS Home Medications: Ambulatory Orders Medication Instructions Recorded Confirmed Amlodipine Besylate 10 mg PO DAILY 09/01/15 02/16/21 Budesonide [Pulmicort] 120 puffs INH ONCE PRN 09/01/15 02/16/21 Potassium Chloride [Micro-K] 10 meq PO BID 09/01/15 02/16/21 Cetirizine HCl [Zyrtec] 1 tab PO DAILY 09/02/15 02/16/21 Benzonatate [Tessalon] 100 mg PO TID PRN #20 capsule 11/18/15 02/16/21 Saccharomyces Boulardii [Florastor] 500 mg PO BID #40 capsule 11/18/15 02/16/21 Ondansetron Odt [Zofran Odt] 4 mg TL Q6H PRN #10 tablet 12/03/18 02/16/21 Lidocaine [Recticare] 1 appful TP TID #2 cream..g. 11/04/19 02/16/21 Acetaminophen [Tylenol] 650 mg PO Q4HR PRN tablet 02/18/21 Albuterol Sulf [Ventolin Hfa 2 puffs INH Q4HR PRN #18 gm 02/18/21 Inhaler] Calcium Carbonate [Tums (Calcium 500 mg PO DAILY tablet 02/18/21 Carbonate 500mg)] Carboxymethylcellulose 1% Opht 1 drops EACHEYE PRN PRN drops 02/18/21 [Refresh 1% Ophth Drops] Cholecalciferol [Vitamin D3] 800 unit PO DAILY tablet 02/18/21 Enoxaparin [Lovenox] 40 mg SUBQ DAILY 02/18/21 HYDROcod/ACETAM 5/325 [[place] 5/325] 1 tab PO Q4HR PRN #30 tablet 02/18/21 Thiamine [Vitamin B-1] 100 mg PO DAILY tablet 02/18/21 amLODIPine [Norvasc] 10 mg PO DAILY tablet 02/18/21 - LABS Result Diagrams: 02/18/21 05:09 02/18/21 05:09
== END 2021-02-18 13:40 ==
LOC: EDUNIT# → ED 17:40 → MS2 20:14
PROVIDERS: ADMIT Internal Medicine; ATTEND Specialist
DX: G89.11 Acute pain due to trauma (principal); S32.435A Nondisplaced fracture of anterior column [iliopubic] of left acetabulum, initial encounter for closed fracture; R09.02 Hypoxemia; R64 Cachexia; I95.1 Orthostatic hypotension; J44.9 Chronic obstructive pulmonary disease, unspecified; I10 Essential (primary) hypertension; F10.129 Alcohol abuse with intoxication, unspecified; Y90.6 Blood alcohol level of 120-199 mg/100 ml; R53.1 Weakness; E87.1 Hypo-osmolality and hyponatremia; E87.6 Hypokalemia; Z79.52 Long term (current) use of systemic steroids; Z68.1 Body mass index [BMI] 19.9 or less, adult; W01.0XXA Fall on same level from slipping, tripping and stumbling without subsequent striking against object, initial encounter; Y92.9 Unspecified place or not applicable; Z20.822 Contact with and (suspected) exposure to COVID-19
CPT/HCPCS: 36415; 71045; 73502; 73700; 80048; 80053; 83735; 85025; 85610; 87631; 93005; 94640; 96365; 96366; 96367; 96372; 96375; 96376; 97110; 97116; 97161; 99285; A9270; G0378; G0480; J1170; J1650; J3411; J7040; J7626; 0202U; 80320

== ENCOUNTER 2021-10-30 14:27 | Outpatient (CLI) | payer MEDICARE ==
--- NOTE | 2021-10-30 16:39 | DEXA Report ---
PROCEDURE: Dexa Spine and/or Hip INDICATIONS: FX OF PELVIS TECHNIQUE: Dual energy x-ray absorptiometry (DXA) was performed on a Crittercism System. Regions measur ed are the AP Spine, femoral neck, and if needed forearm. COMPARISON: None. FINDINGS: Lumbar Spine: Bone Mineral Density 1.043 g/cm/cm,T score -1.5, osteopenia Left Hip: Bone Mineral Density 0.685 g/cm/cm,T score -2.9, osteoporosis Left Femoral Neck: Bone Mineral Density 0.610 g/cm/cm, T score -3.5, osteoporosis (T score greater or equal to -1.0: NORMAL) (T score from -1.1 to -2.4: OSTEOPENIA) (T score less than or equal to -2.5 to: OSTEOPOROSIS) Impression: OSTEOPOROSIS. Patient is at high risk for fracture. Patients with diagnosis of osteoporosis or osteopenia should have regular bone mineral density assess ment. For those eligible for Medicare, routine testing is allowed once every 2 years. Testing frequ ency can be increased for patients who have rapidly progressing disease or for those who are receivin g medical therapy to restore bone mass. Reviewed by: Juan Doss MD on 10/30/2021 4:37 PM PST Approved by: Juan Doss MD on 10/30/2021 4:37 PM PST Station ID: [id number]
== END 2021-10-30 14:28 | disposition home or self-care (01) ==
LOC: DI 14:27
PROVIDERS: ATTEND Family Medicine
DX: S32.9XXD Fracture of unspecified parts of lumbosacral spine and pelvis, subsequent encounter for fracture with routine healing (principal); M81.0 Age-related osteoporosis without current pathological fracture

== ENCOUNTER 2021-11-03 16:48 | Outpatient (CLI) | payer MEDICARE | END 2021-11-03 16:49 | disposition short-term general hospital (02) | LOC: EMS 16:48 | DX: R07.9 Chest pain, unspecified (principal); R51.9 Headache, unspecified; R11.0 Nausea; R06.09 Other forms of dyspnea; R00.0 Tachycardia, unspecified | CPT/HCPCS: A0425; A0429 ==

== ENCOUNTER 2022-03-12 13:43 | Outpatient (CLI) | payer MEDICARE | END 2022-03-12 13:44 | disposition short-term general hospital (02) | LOC: EMS 13:43 | DX: R06.02 Shortness of breath (principal); J44.9 Chronic obstructive pulmonary disease, unspecified | CPT/HCPCS: A0425; A0427 ==